=== PATIENT | male | born 1965 | race Caucasian/White ===

== ENCOUNTER 2018-07-23 16:57 | Inpatient (IN) | payer MEDICARE ==
[2018-07-23] MEDS ORDERED: ASPIRIN 81 MG PO STA (17:11)
[2018-07-23 17:38] LABS: Basophils # (A) 0.1 k/uL (0-0.2); Basophils % (A) 1 %; Eosinophils # (A) 0.7 k/uL (0-0.7); Eosinophils % (A) 6 %; HCT 48.5 % (39.0-53.0); HGB 15.9 gm/dL (13.0-17.5); Lymphocytes % (A) 16 %; MCH 30.9 pg (25.0-35.0); MCHC 32.8 g/dL (31.0-37.0); MCV 94.2 fL (80.0-100.0); Mean Platelet Volume 7.7; Monocytes # (A) 0.8 k/uL (0-1.0); Monocytes % (A) 6 %; Neutrophils # (A) 8.4 k/uL (1.3-7.7); Neutrophils % (A) 68 %; Platelet Count 243 k/uL (150-450); RBC 5.15 m/uL (4.30-5.90); RDW 13.8 % (11.5-15.5); WBC 12.4 k/uL (3.8-10.6)
[2018-07-23 17:42] LABS: INR 0.9 (<1.2); Partial Thromboplastin Time 27.5 sec (22.0-30.0); Prothrombin Time 10.1 sec (9.0-12.0)
[2018-07-23 17:48] LABS: Albumin 4.6 g/dL (3.5-5.0); Calcium 10.1 mg/dL (8.4-10.2); Magnesium 1.9 mg/dL (1.6-2.3); Potassium 4.1 mmol/L (3.5-5.1); Total Bilirubin 0.9 mg/dL (0.2-1.3); Total Protein 7.7 g/dL (6.3-8.2)
--- NOTE | 2018-07-23 18:25 | XR ---
EXAMINATION TYPE: XR chest 2V DATE OF EXAM: 07/23/2018 COMPARISON: NONE HISTORY: Chest pain TECHNIQUE: Frontal and lateral views of the chest are obtained. FINDINGS: Heart and mediastinum are normal. Lungs are clear. Diaphragm is normal. Bony thorax appear s normal. IMPRESSION: Normal chest.
[2018-07-23] MEDS ORDERED: HEPARIN SODIUM,PORCINE 5,000 UNIT/ML 1 ML VIAL IV ONE (18:30)
[2018-07-23] MEDS ORDERED: NITROGLYCERIN OINT 1 INCH/GM PACKET TOPICAL STA (18:45)
[2018-07-23] MEDS ORDERED: METOPROLOL SUCCINATE (ER) 50 MG TAB.ER.24H PO STA (18:45)
[2018-07-23] MEDS ORDERED: NITROGLYCERIN SL TABS 0.4 MG TAB SUBLINGUAL PRN (18:46)
[2018-07-23] MEDS ORDERED: MORPHINE SULFATE 2 MG/ML SYRINGE IVP PRN (18:46)
[2018-07-23] MEDS: HEPARIN SOD,PORK IN 0.45% NACL 25,000 UNIT in 0.45% NACL 1 250ML.BAG IV SCH (18:49)
--- NOTE | 2018-07-23 18:50 | ED ---
Medical Decision Making - Medical Decision Making PA attestation: I, Dr. Robert Cuteo, personally saw and examined the patient. I have reviewed and agree with the resident/PA findings, including all diagnostic interpretations and treatment plans as written unless otherwise stated. I was present for the hawkins portions of any procedures performed and inclusive time noted for any critical care statement. Patient is a 52-year-old male presents with clinical presentation consistent with unstable angina. EKG does not show STEMI however does show ischemic changes. Patient's troponin is elevated at 1.350. Patient evaluated at bedside myself currently not having any chest symptoms. He is hemodynamically stable. Patient case was discussed with Dr. Alberto of cardiology request patient be place intensive care unit with heparin, metoprolol, aspirin and nitro glycerin. Discussed patient case Dr. Burleson who is acceptable to ICU disposition. Repeat EKG did not show any dynamic changes. There is no clinical suspicion of PE at this time given that patient still complaining of shortness of breath, pleuritic chest pain and has no physical exam findings to suggest PE including lower extremity swelling or pain. - Lab Data Result diagrams: 07/23/18 17:21 07/23/18 17:21 Lab Results 07/23/18 07/23/18 07/23/18 Range/Units 17:21 17:21 17:21 WBC 12.4 H (3.8-10.6) k/uL RBC 5.15 (4.30-5.90) m/uL Hgb 15.9 (13.0-17.5) gm/dL Hct 48.5 (39.0-53.0) % MCV 94.2 (80.0-100.0) fL MCH 30.9 (25.0-35.0) pg MCHC 32.8 (31.0-37.0) g/dL RDW 13.8 (11.5-15.5) % Plt Count 243 (150-450) k/uL Neutrophils % 68 % Lymphocytes % 16 % Monocytes % 6 % Eosinophils % 6 % Basophils % 1 % Neutrophils # 8.4 H (1.3-7.7) k/uL Lymphocytes # 2.0 (1.0-4.8) k/uL Monocytes # 0.8 (0-1.0) k/uL Eosinophils # 0.7 (0-0.7) k/uL Basophils # 0.1 (0-0.2) k/uL PT 10.1 (9.0-12.0) sec INR 0.9 (<1.2) APTT 27.5 (22.0-30.0) sec D-Dimer (<0.60) mg/L FEU Sodium 140 (137-145) mmol/L Potassium 4.1 (3.5-5.1) mmol/L Chloride 104 (98-107) mmol/L Carbon Dioxide 27 (22-30) mmol/L Anion Gap 9 mmol/L BUN 19 (9-20) mg/dL Creatinine 1.17 (0.66-1.25) mg/dL Est GFR (CKD-EPI)AfAm 82 (>60 ml/min/1.73 sqM) Est GFR (CKD-EPI)NonAf 71 (>60 ml/min/1.73 sqM) Glucose 100 H (74-99) mg/dL Calcium 10.1 (8.4-10.2) mg/dL Magnesium 1.9 (1.6-2.3) mg/dL Total Bilirubin 0.9 (0.2-1.3) mg/dL AST 57 (17-59) U/L ALT 30 (21-72) U/L Alkaline Phosphatase 73 (38-126) U/L Troponin I (0.000-0.034) ng/mL NT-Pro-B Natriuret Pep pg/mL Total Protein 7.7 (6.3-8.2) g/dL Albumin 4.6 (3.5-5.0) g/dL 07/23/18 07/23/18 07/23/18 Range/Units 17:21 17:50 17:50 WBC (3.8-10.6) k/uL RBC (4.30-5.90) m/uL Hgb (13.0-17.5) gm/dL Hct (39.0-53.0) % MCV (80.0-100.0) fL MCH (25.0-35.0) pg MCHC (31.0-37.0) g/dL RDW (11.5-15.5) % Plt Count (150-450) k/uL Neutrophils % % Lymphocytes % % Monocytes % % Eosinophils % % Basophils % % Neutrophils # (1.3-7.7) k/uL Lymphocytes # (1.0-4.8) k/uL Monocytes # (0-1.0) k/uL Eosinophils # (0-0.7) k/uL Basophils # (0-0.2) k/uL PT (9.0-12.0) sec INR (<1.2) APTT (22.0-30.0) sec D-Dimer 0.35 (<0.60) mg/L FEU Sodium (137-145) mmol/L Potassium (3.5-5.1) mmol/L Chloride (98-107) mmol/L Carbon Dioxide (22-30) mmol/L Anion Gap mmol/L BUN (9-20) mg/dL Creatinine (0.66-1.25) mg/dL Est GFR (CKD-EPI)AfAm (>60 ml/min/1.73 sqM) Est GFR (CKD-EPI)NonAf (>60 ml/min/1.73 sqM) Glucose (74-99) mg/dL Calcium (8.4-10.2) mg/dL Magnesium (1.6-2.3) mg/dL Total Bilirubin (0.2-1.3) mg/dL AST (17-59) U/L ALT (21-72) U/L Alkaline Phosphatase (38-126) U/L Troponin I 1.350 H* (0.000-0.034) ng/mL NT-Pro-B Natriuret Pep 521 pg/mL Total Protein (6.3-8.2) g/dL Albumin (3.5-5.0) g/dL Disposition Clinical Impression: Unstable angina Disposition: ADMITTED IP TO THIS [facility] Condition: Critical Referrals: None,Stated [Primary Care Provider] - 1-2 days Decision Time: 18:49
--- NOTE | 2018-07-23 21:25 | P.HPIM ---
History of Present Illness H&P Date: 07/23/18 Chief Complaint: Chest pain The patient is a 52-year-old obese male with a past smoker history of hypothyroidism and hyperlipidemia who presents to the ER with complaints of chest pain. Apparently the patient has been having intermittent episodes of exertionally related chest discomfort over the last week. Today in particular the patient was exerting himself by pulling cattle panels several yards in his yard, the patient then subsequently began having left-sided severe 7 out of 10 throbbing pressure-like nonradiating pain with associated shortness of breath, the patient denied any associated diaphoresis nausea or vomiting or abdominal pain. The patient denies any history of smoking, he does report a family history of coronary disease in his brother and mother. In the ER the patient was noted to be hypertensive BP 152/82, workup with chest x-ray showed no acute process. EKG indicating some ischemia with T-wave inversion With elevated troponin at 1.350. WBC count 12.4 d-dimer 0.35. The patient was started on aspirin, given a dose of nitroglycerin and metoprolol and placed on heparin drip, he was subsequently recommended for admission for ACS non-Q wave WI Review of Systems Pertinent positives per HPI all other of systems otherwise negative Past Medical History Past Medical History: Hyperlipidemia History of Any Multi-Drug Resistant Organisms: None Reported Past Surgical History: No Surgical Hx Reported Past Psychological History: No Psychological Hx Reported Smoking Status: Never smoker Past Alcohol Use History: None Reported Past Drug Use History: None Reported Medications and Allergies Home Medications Medication Instructions Recorded Confirmed Type Thyroid,Pork [[place] Thyroid] 60 mg PO DAILY 07/23/18 07/23/18 History Allergies Allergy/AdvReac Type Severity Reaction Status Date / Time No Known Allergies Allergy Verified 07/23/18 17:14 Physical Exam Vitals: Vital Signs Temp Pulse Resp BP Pulse Ox 07/23/18 20:50 76 10 L 145/84 94 L 07/23/18 20:40 82 11 L 144/87 92 L 07/23/18 20:30 97 14 142/85 94 L 07/23/18 20:20 84 18 142/85 91 L 07/23/18 20:10 88 19 152/82 92 L 07/23/18 20:00 87 24 152/89 93 L 07/23/18 19:50 82 9 L 152/89 95 07/23/18 19:40 79 19 146/85 95 07/23/18 19:30 89 18 139/103 97 07/23/18 19:20 85 14 139/103 97 07/23/18 19:10 85 15 147/86 97 07/23/18 19:00 88 18 154/94 96 07/23/18 18:50 111 H 14 154/94 95 07/23/18 18:40 122 H 13 139/76 07/23/18 18:30 94 18 145/72 07/23/18 18:20 86 16 145/72 07/23/18 18:10 92 18 147/82 07/23/18 18:00 99 18 148/89 96 07/23/18 17:50 89 18 148/89 96 07/23/18 17:40 110 H 18 167/91 93 L 07/23/18 17:30 101 H 12 94 L 07/23/18 17:23 96 07/23/18 17:00 99.1 F 102 H 20 148/96 96 Intake and Output 07/23/18 07/23/18 07/23/18 06:59 14:59 22:59 Other: Weight 114.759 kg Constitutional: No acute distress, conversant, pleasant Eyes: Anicteric sclerae, moist conjunctiva, no lid-lag, PERRLA ENMT: NC/AT,Oropharynx clear, no erythema, exudates Neck:Supple, FROM, no masses, or JVD, No carotid bruits; No thyromegaly Lungs: Clear to auscultation, Clear to percussion, Normal respiratory effort, no accessory muscle use Cardiovascular: Heart regular in rate and rhythm, No murmurs, gallops, or rubs no peripheral edema Abdominal: Soft Nontender, nom distended, no guarding, no rebound or rigidity, Normoactive bowel sounds No hepatomegaly, No splenomegaly, No palpable mass No abdominal wall hernia noted Skin: Normal temperature, tone, texture, turgor, No induration No subcutaneous nodules, No rash, lesions, No ulcers Extremities:No digital cyanosis No clubbing, Pedal pulses intact and symmetrical Radial pulses intact and symmetrical Normal gait and station, No calf tenderness Psychiatric: Alert and oriented to person, place and time, Appropriate affect Intact judgement Neuro: Muscles Strength 5/5 in all 4 extremities, Sensation to light touch grossly present throughout, Cranial nerves II-XII grossly intact. No focal sensory deficits Results CBC & Chem 7: 07/23/18 17:21 07/23/18 17:21 Labs: Abnormal Lab Results - Last 24 Hours (Table) 07/23/18 07/23/18 07/23/18 Range/Units 17:21 17:21 17:21 WBC 12.4 H (3.8-10.6) k/uL Neutrophils # 8.4 H (1.3-7.7) k/uL Glucose 100 H (74-99) mg/dL Troponin I 1.350 H* (0.000-0.034) ng/mL Assessment and Plan (1) Non-STEMI (non-ST elevated myocardial infarction) Current Visit: Yes Status: Acute Code(s): I21.4 - NON-ST ELEVATION (NSTEMI) MYOCARDIAL INFARCTION SNOMED Code(s): 88615222 (2) Essential hypertension Current Visit: Yes Status: Acute Code(s): I10 - ESSENTIAL (PRIMARY) HYPERTENSION SNOMED Code(s): 28571175 (3) Hypothyroidism Current Visit: Yes Status: Acute Code(s): E03.9 - HYPOTHYROIDISM, UNSPECIFIED SNOMED Code(s): 23581582 Plan: The patient is admitted, anticipate a greater than 2 midnight stay with non- STEMI non-Q wave WI after presenting with exertional chest pain found to have elevation of his troponin with suspicious T-wave inversion. He is started on protocol with antiplatelet therapy with aspirin, and anticoagulation with heparin drip per protocol, we'll continue to trend his enzymes sequentially, urgent cardiology consultation, will order echocardiogram. We'll continue metoprolol, nitroglycerin when necessary. The patient is admitted to the ICU for close monitoring. We'll continue to follow patient's clinical course CODE STATUS: Full code Discussed plan of care with: Patient Anticipated discharge 2-3 days Prophylaxis: Currently on heparin Time with Patient: Greater than 30
[2018-07-23] MEDS ORDERED: ACETAMINOPHEN TAB 325 MG TAB PO PRN (21:33)
[2018-07-23 21:42] LABS: Glucose,Whole Blood 99 mg/dL (75-99)
[2018-07-23] MEDS ORDERED: METOPROLOL TARTRATE 25 MG TAB PO STA (21:42)
[2018-07-23] MEDS: ATORVASTATIN 40 MG TAB PO SCH (21:53)
[2018-07-24] MEDS: HEPARIN SODIUM,PORCINE 5,000 UNIT/ML 1 ML VIAL IV PRN ×3 (02:05→21:00)
[2018-07-24 06:24] LABS: Basophils # (A) 0.1 k/uL (0-0.2); Basophils % (A) 1 %; Eosinophils # (A) 0.3 k/uL (0-0.7); Eosinophils % (A) 3 %; HCT 45.6 % (39.0-53.0); HGB 14.7 gm/dL (13.0-17.5); Lymphocytes # (A) 1.8 k/uL (1.0-4.8); Lymphocytes % (A) 16 %; MCH 31.2 pg (25.0-35.0); MCHC 32.3 g/dL (31.0-37.0); MCV 96.5 fL (80.0-100.0); Mean Platelet Volume 7.2; Monocytes # (A) 0.7 k/uL (0-1.0); Monocytes % (A) 7 %; Neutrophils # (A) 7.7 k/uL (1.3-7.7); Neutrophils % (A) 71 %; Platelet Count 204 k/uL (150-450); RBC 4.73 m/uL (4.30-5.90); RDW 13.1 % (11.5-15.5); WBC 10.8 k/uL (3.8-10.6)
[2018-07-24 06:44] LABS: Anion Gap 11 mmol/L; Blood Urea Nitrogen 16 mg/dL (9-20); Calcium 9.4 mg/dL (8.4-10.2); Carbon Dioxide 24 mmol/L (22-30); Chloride 104 mmol/L (98-107); Cholesterol 195 mg/dL (<200); Glucose 94 mg/dL (74-99); HDL Cholesterol 36 mg/dL (40-60); LDL Cholesterol,Calculated 146 mg/dL (0-99); Potassium 4.1 mmol/L (3.5-5.1); Sodium 139 mmol/L (137-145); Triglycerides 65 mg/dL (<150)
--- NOTE | 2018-07-24 08:39 | P.PN ---
Subjective Progress Note Date: 07/24/18 Principal diagnosis: Chest pain. 52-year-old male with PMH obesity, past smoker, hypothyroidism and hyperlipidemia presents the ED for chest pain. Initial troponin was 1.350 with EKG indicating ischemia with T-wave inversion. Patient subsequently started on a heparin drip for ACS non-Q-wave OR and admitted to ICU for further workup. Subsequent troponins were 2.74, 3.83, 3.78. Cardiology is currently on consult. Patient seen and examined. No acute events overnight. Patient reports mild chest pain overnight. Pain is in the upper epigastric area and left side of the chest occasionally radiating to the left arm. He denies any nausea or vomiting. No shortness of breath or palpitations. Also complains of chest pain over the last few months, especially with carrying heavy things and with exertion. Objective - Vital Signs Vital signs: Vital Signs Temp 97.9 F 07/24/18 04:00 Pulse 77 07/24/18 07:00 Resp 23 07/24/18 07:00 BP 134/76 07/24/18 07:00 Pulse Ox 93 L 07/24/18 07:00 Intake & Output 07/23/18 07/24/18 07/24/18 18:59 06:59 18:59 Intake Total 134.387 Output Total 275 0 Balance -140.613 0 Weight 114.759 kg 114.7 kg Intake: Intake, IV Titration 134.387 Amount Heparin Sod,Pork in 0.45% 134.387 NaCl 25,000 unit In 0.45 % NaCl 1 250ml.bag @ 8. 714 UNITS/KG/HR 10 mls/hr IV .Q24H [facility] Rx#: [id number] Output: Urine 275 0 Other: Voiding Method Urinal - Exam General: [non toxic], [no distress], [appears at stated age] Derm: [warm], [dry] Head: [atraumatic], [normocephalic], [symmetric] Eyes: [EOMI], [no lid lag], [anicteric sclera] Mouth: [no lip lesion], [mucus membranes moist] Cardiovascular: [S1S2 reg], [no murmur], [positive posterior tibial pulse bilateral], Lungs: [CTA bilateral], [no rhonchi, no rales] , [no accessory muscle use] Abdominal: [soft], [ nontender to palpation], [no guarding], [no appreciable organomegaly] Ext: [no gross muscle atrophy], [no edema], [no contractures] Neuro: [ CN II-XI grossly intact], [no focal neuro deficits] Psych: [Alert], [oriented], [appropriate affect] - Labs CBC & Chem 7: 07/24/18 05:29 07/24/18 05:29 Labs: Abnormal Lab Results - Last 24 Hours (Table) 07/23/18 07/23/18 07/23/18 Range/Units 17:21 17:21 17:21 WBC 12.4 H (3.8-10.6) k/uL Neutrophils # 8.4 H (1.3-7.7) k/uL APTT (22.0-30.0) sec Glucose 100 H (74-99) mg/dL Troponin I 1.350 H* (0.000-0.034) ng/mL LDL Cholesterol, Calc (0-99) mg/dL HDL Cholesterol (40-60) mg/dL 07/23/18 07/24/18 07/24/18 Range/Units 23:20 00:29 05:29 WBC 10.8 H (3.8-10.6) k/uL Neutrophils # (1.3-7.7) k/uL APTT 39.6 H (22.0-30.0) sec Glucose (74-99) mg/dL Troponin I 2.740 H* (0.000-0.034) ng/mL LDL Cholesterol, Calc (0-99) mg/dL HDL Cholesterol (40-60) mg/dL 07/24/18 07/24/18 07/24/18 Range/Units 05:29 05:29 05:29 WBC (3.8-10.6) k/uL Neutrophils # (1.3-7.7) k/uL APTT 90.8 H (22.0-30.0) sec Glucose (74-99) mg/dL Troponin I 3.830 H* (0.000-0.034) ng/mL LDL Cholesterol, Calc 146 H (0-99) mg/dL HDL Cholesterol 36 L (40-60) mg/dL 07/24/18 Range/Units 05:29 WBC (3.8-10.6) k/uL Neutrophils # (1.3-7.7) k/uL APTT (22.0-30.0) sec Glucose (74-99) mg/dL Troponin I 3.780 H* (0.000-0.034) ng/mL LDL Cholesterol, Calc (0-99) mg/dL HDL Cholesterol (40-60) mg/dL Assessment and Plan Assessment: Assessment and Plan Non-Q-wave OR Hypertension Hyperlipidemia Obesity with BMI 38.4 Result factors include hypertension, hyperlipidemia and obesity. Chest x-ray negative. Troponins 1.35, 2.74, 3.83, 3.78 with EKG showing sinus tachycardia with T-wave inversions. Plan: Continue aspirin and Lipitor. Continue beta meka. Tylenol or Nitrostat as needed for chest pain. Continue heparin drip. Telemetry monitoring. Follow cardiology recommendations. Follow-up echocardiogram. BP 134/76. Plan: Continue metoprolol. Monitor vitals, adjust medications as necessary. Lipid panel shows elevated LDL 146 and decreased HDL of 36. Plan: Low-fat diet. Continue Lipitor. Plan: Structured weight loss program. Patient admitted for non-Q-wave OR. Cardiology is consulted. Continued on heparin drip.
[2018-07-24] MEDS: ASPIRIN 325 MG TAB PO SCH (09:23)
[2018-07-24] MEDS: THYROID, PORK 30 MG TAB PO SCH (09:23)
[2018-07-24] MEDS: METOPROLOL TARTRATE 25 MG TAB PO SCH ×2 (09:23→20:50)
--- NOTE | 2018-07-24 10:48 | ECHOF ---
Referral Reason:NSTEMI MEASUREMENTS -------- HEIGHT: 172.7 cm WEIGHT: 114.3 kg BP: 122/76 RVIDd: 3.2 cm (< 3.3) IVSd: 1.3 cm (0.6 - 1.1) LVIDd: 4.3 cm (3.9 - 5.3) LVPWd: 1.2 cm (0.6 - 1.1) IVSs: 1.7 cm LVIDs: 3.4 cm LVPWs: 1.5 cm LA Diam: 3.5 cm (2.7 - 3.8) LAESV Index (A-L): 21.07 ml/m Ao Diam: 3.2 cm (2.0 - 3.7) AV Cusp: 2.2 cm (1.5 - 2.6) MV EXCURSION: 16.269 mm (> 18.000) MV EF SLOPE: 73 mm/s (70 - 150) EPSS: 0.7 cm MV E William: 0.83 m/s MV DecT: 204 ms MV A William: 1.11 m/s MV E/A Ratio: 0.75 RAP: 5.00 mmHg RVSP: 38.74 mmHg FINDINGS -------- Sinus rhythm. This was a technically adequate study. The left ventricular size is normal. There is mild concentric left ventricular hypertrophy. Overa ll left ventricular systolic function is mildly impaired with, an EF between 45 - 50 %. Basal infer ior LV wall motion is hypokinetic. The right ventricle is normal in size. Normal LA size by volume 22+/-6 ml/m2. The right atrium is normal in size. The aortic valve is trileaflet and appears structurally normal. Mild mitral annular calcification present. Mild tricuspid regurgitation present. There is mild pulmonary hypertension. The right ventricular systolic pressure, as measured by Doppler, is 38.74mmHg. There is no pulmonic regurgitation present. The aortic root size is normal. Normal inferior vena cava with normal inspiratory collapse consistent with estimated right atrial pre ssure of 5 mmHg. Echo free space may represent effusion or a pericardial fat pad. CONCLUSIONS -------- 1. Sinus rhythm. 2. This was a technically adequate study. 3. The left ventricular size is normal. 4. There is mild concentric left ventricular hypertrophy. 5. Overall left ventricular systolic function is mildly impaired with, an EF between 45 - 50 %. 6. Basal inferior LV wall motion is hypokinetic. 7. The right ventricle is normal in size. 8. Normal LA size by volume 22+/-6 ml/m2. 9. The right atrium is normal in size. 10. The aortic valve is trileaflet and appears structurally normal. 11. Mild mitral annular calcification present. 12. Mild tricuspid regurgitation present. 13. There is mild pulmonary hypertension. 14. The right ventricular systolic pressure, as measured by Doppler, is 38.74mmHg. 15. There is no pulmonic regurgitation present. 16. The aortic root size is normal. 17. Normal inferior vena cava with normal inspiratory collapse consistent with estimated right atrial pressure of 5 mmHg. 18. Echo free space may represent effusion or a pericardial fat pad. SALES OFFICER: Esperanza Cuellar RDCS
[2018-07-24] MEDS: ATORVASTATIN 40 MG TAB PO SCH (20:49)
[2018-07-24] MEDS: HEPARIN SOD,PORK IN 0.45% NACL 25,000 UNIT in 0.45% NACL 1 250ML.BAG IV SCH (21:04)
[2018-07-25 03:58] LABS: Basophils % (A) 0 %; Eosinophils # (A) 0.4 k/uL (0-0.7); Eosinophils % (A) 4 %; HCT 45.1 % (39.0-53.0); HGB 14.9 gm/dL (13.0-17.5); Lymphocytes # (A) 2.3 k/uL (1.0-4.8); Lymphocytes % (A) 22 %; MCH 31.4 pg (25.0-35.0); MCHC 33.1 g/dL (31.0-37.0); MCV 95.1 fL (80.0-100.0); Mean Platelet Volume 6.8; Monocytes # (A) 0.8 k/uL (0-1.0); Monocytes % (A) 8 %; Neutrophils # (A) 6.5 k/uL (1.3-7.7); Neutrophils % (A) 64 %; Platelet Count 178 k/uL (150-450); RBC 4.75 m/uL (4.30-5.90); RDW 13.3 % (11.5-15.5); WBC 10.2 k/uL (3.8-10.6)
[2018-07-25 04:41] LABS: ALT 28 U/L (21-72); AST 62 U/L (17-59); Alkaline Phosphatase 66 U/L (38-126); Anion Gap 9 mmol/L; Blood Urea Nitrogen 16 mg/dL (9-20); Calcium 9.2 mg/dL (8.4-10.2); Carbon Dioxide 27 mmol/L (22-30); Chloride 102 mmol/L (98-107); Glucose 87 mg/dL (74-99); Potassium 4.2 mmol/L (3.5-5.1); Sodium 138 mmol/L (137-145); Total Bilirubin 1.1 mg/dL (0.2-1.3); Total Protein 6.9 g/dL (6.3-8.2)
--- NOTE | 2018-07-25 07:04 | P.CRDCN ---
History of Present Illness Consult date: 07/25/18 Chief complaint: Chest pain History of present illness: This is a pleasant 52-year-old gentleman with a past medical history significant for mild obesity as well as dyslipidemia was not receiving any medications for that presented to the hospital containing of chest discomfort. He was in his usual state of health until about a week ago when he noticed intermittent episodes of chest discomfort, in the mid of the chest, as a pressure on the ch est, with some radiation to the left arm, was associated symptoms of shortness of breath without any sweating, dizziness, or syncope. He clearly stated that the chest discomfort is mostly exertional and better with resting. He stated that he does not have to exert himself that much for the chest discomfort to come on. Because of that he decided to come to the emergency room. The EKG showed sinus rhythm without any significant ST or T-wave abnormalities concerning for ischemia. The troponin came in to be elevated and consistent with acute myocardial infarction. I did advise the patient to undergo heart catheterization and possible revascularization. The procedure in details was explained to the patient. Currently he is on heparin, aspirin, metoprolol, and statin. We will continue t he current medical regimen and proceed with coronary angiogram later on today. Please note that the patient does have a very significant family history of coronary artery disease. Past Medical History Past Medical History: Hyperlipidemia Additional Past Medical History / Comment(s): tourettes syndrome History of Any Multi-Drug Resistant Organisms: None Reported Past Surgical History: No Surgical Hx Reported Past Anesthesia/Blood Transfusion Reactions: No Reported Reaction Past Psychological History: No Psychological Hx Reported Smoking Status: Never smoker Past Alcohol Use History: None Reported Past Drug Use History: None Reported - Past Family History Mother Family Medical History: Coronary Artery Disease (CAD) Medications and Allergies Home Medications Medication Instructions Recorded Confirmed Type Thyroid,Pork [[place] Thyroid] 60 mg PO DAILY 07/23/18 07/23/18 History Allergies Allergy/AdvReac Type Severity Reaction Status Date / Time No Known Allergies Allergy Verified 07/23/18 17:14 Physical Exam Vitals: Vital Signs Temp Pulse Resp BP Pulse Ox 07/25/18 06:00 66 16 120/79 91 L 07/25/18 05:00 78 14 127/81 96 07/25/18 04:01 98.3 F 75 17 114/79 95 07/25/18 03:00 71 22 121/93 91 L 07/25/18 02:00 64 12 114/74 92 L 07/25/18 01:00 68 16 114/84 92 L 07/25/18 00:00 74 16 112/73 96 07/24/18 23:00 78 12 119/61 94 L 07/24/18 22:00 73 19 132/69 92 L 07/24/18 21:00 82 21 135/78 93 L 07/24/18 20:30 94 L 07/24/18 20:00 98.7 F 84 14 121/70 91 L 07/24/18 19:00 78 17 122/76 94 L 07/24/18 18:00 80 16 121/71 93 L 07/24/18 17:00 85 22 134/84 96 07/24/18 16:00 99.1 F 80 20 119/72 92 L 07/24/18 15:00 75 22 138/75 95 07/24/18 14:00 71 15 140/77 93 L 07/24/18 13:00 77 13 121/67 93 L 07/24/18 12:00 99.2 F 72 22 120/72 93 L 07/24/18 11:00 65 10 L 147/90 96 07/24/18 10:00 80 20 156/84 91 L 07/24/18 09:00 94 19 156/84 94 L 07/24/18 08:30 65 16 131/67 91 L 07/24/18 08:15 68 14 131/67 91 L 07/24/18 08:00 98.9 F 71 16 140/95 94 L 07/24/18 07:45 62 16 140/95 92 L 07/24/18 07:30 72 15 140/95 94 L 07/24/18 07:15 65 18 140/95 93 L Intake and Output 07/24/18 07/25/18 07/25/18 22:59 06:59 14:59 Intake Total 497.893 117.129 Output Total 0 300 Balance 497.893 -182.871 Intake: Intake, IV Titration 47.893 117.129 Amount Heparin Sod,Pork in 0.45% 47.893 117.129 NaCl 25,000 unit In 0.45 % NaCl 1 250ml.bag @ 8. 714 UNITS/KG/HR 10 mls/hr IV .Q24H [facility] Rx#: [id number] Oral 450 0 Output: Urine 0 300 Other: Voiding Method Urinal Urinal # Voids 1 0 Weight 111.8 kg - Constitutional General appearance: no acute distress - Respiratory Respiratory: bilateral: CTA - Cardiovascular Rhythm: regular Heart sounds: normal: S1, S2 Results 07/25/18 03:31 07/25/18 03:31 Cardiac Enzymes 07/24/18 07/24/18 07/25/18 Range/Units 05:29 11:39 03:31 AST 62 H (17-59) U/L Troponin I 3.830 H* 2.650 H* (0.000-0.034) ng/mL Coagulation 07/24/18 07/24/18 07/25/18 Range/Units 11:39 18:46 03:31 APTT 44.0 H 59.5 H 98.5 H (22.0-30.0) sec CBC 07/25/18 Range/Units 03:31 WBC 10.2 (3.8-10.6) k/uL RBC 4.75 (4.30-5.90) m/uL Hgb 14.9 (13.0-17.5) gm/dL Hct 45.1 (39.0-53.0) % Plt Count 178 (150-450) k/uL Comprehensive Metabolic Panel 07/25/18 Range/Units 03:31 Sodium 138 (137-145) mmol/L Potassium 4.2 (3.5-5.1) mmol/L Chloride 102 (98-107) mmol/L Carbon Dioxide 27 (22-30) mmol/L BUN 16 (9-20) mg/dL Creatinine 0.82 (0.66-1.25) mg/dL Glucose 87 (74-99) mg/dL Calcium 9.2 (8.4-10.2) mg/dL AST 62 H (17-59) U/L ALT 28 (21-72) U/L Alkaline Phosphatase 66 (38-126) U/L Total Protein 6.9 (6.3-8.2) g/dL Albumin 4.0 (3.5-5.0) g/dL Current Medications Generic Name Dose Route Start Last Admin Trade Name Freq PRN Reason Stop Dose Admin Acetaminophen 650 mg 07/23/18 21:33 Tylenol Tab PO Q4HR PRN Pain Aspirin 325 mg 07/24/18 09:00 07/24/18 09:23 Aspirin PO 325 mg DAILY [facility] Administration Atorvastatin Calcium 40 mg 07/23/18 21:00 07/24/18 20:49 Lipitor PO 40 mg HS [facility] Administration Heparin Sodium (Porcine) 0 unit 07/23/18 18:30 07/24/18 21:00 Heparin IV 2,867 unit PER PROTOCOL PRN Administration Low PTT Protocol Heparin Sodium/Sodium Chloride 250 mls @ 10 mls/hr 07/23/18 18:30 07/25/18 05:40 25,000 unit/ Sodium Chloride IV 10.7 units/kg/hr .Q24H [facility] 12.279 mls/hr Titration Protocol 8.714 UNITS/KG/HR Metoprolol Tartrate 25 mg 07/24/18 09:00 07/24/18 20:50 Lopressor PO 25 mg BID [facility] Administration Morphine Sulfate 2 mg 07/23/18 18:46 Morphine Sulfate (Inj) IVP Q5M PRN Chest Pain Nitroglycerin 0.4 mg 07/23/18 18:46 Nitrostat SUBLINGUAL Q5M PRN Chest Pain Thyroid 60 mg 07/24/18 09:00 07/24/18 09:23 [place] Thyroid PO 60 mg DAILY [facility] Administration Intake and Output 07/24/18 07/25/18 07/25/18 22:59 06:59 14:59 Intake Total 497.893 117.129 Output Total 0 300 Balance 497.893 -182.871 Intake: Intake, IV Titration 47.893 117.129 Amount Heparin Sod,Pork in 0.45% 47.893 117.129 NaCl 25,000 unit In 0.45 % NaCl 1 250ml.bag @ 8. 714 UNITS/KG/HR 10 mls/hr IV .Q24H [facility] Rx#: [id number] Oral 450 0 Output: Urine 0 300 Other: Voiding Method Urinal Urinal # Voids 1 0 Weight 111.8 kg 07/25/18 03:31 07/25/18 03:31 Assessment and Plan Assessment: Assessment #1 acute non-ST elevation myocardial infarction #2 dyslipidemia #3 significant family history of coronary artery disease Plan #1 continue the current medical regimen including aspirin, statin, and heparin #2 proceed with coronary angiogram later on today #3 obtain an echocardiogram was Doppler #4 follow-up with the patient
[2018-07-25] MEDS: ASPIRIN 325 MG TAB PO SCH (09:00)
[2018-07-25] MEDS: THYROID, PORK 30 MG TAB PO SCH (09:00)
[2018-07-25] MEDS: METOPROLOL TARTRATE 25 MG TAB PO SCH ×2 (09:00→21:08)
[2018-07-25] MEDS ORDERED: VERAPAMIL 2.5 MG/ML 2 ML AMP ONE (12:38)
[2018-07-25] MEDS ORDERED: HEPARIN SODIUM 1,000 UN/ML (10ML VL) ONE ×2 (12:52→13:45)
[2018-07-25] MEDS ORDERED: MIDAZOLAM (PF) 2 MG/2 ML VIAL IVP ONE ×2 (12:57→13:07)
[2018-07-25] MEDS ORDERED: LIDOCAINE 1% INJ 10MG/ML (20 ML MDV) SQ ONE (13:00)
[2018-07-25] MEDS ORDERED: SODIUM CHLORIDE 0.9% 1,000 ML IV ONE (13:00)
[2018-07-25] MEDS: VERAPAMIL SYRINGE (5 MG/10 ML) INTRAARTER ONE ×2 (13:02→13:37)
[2018-07-25] MEDS ORDERED: HEPARIN SODIUM 1,000 UN/ML (10ML VL) IV ONE ×2 (13:03→13:44)
[2018-07-25] MEDS: NITROGLYCERIN 1000MCG/10ML SYRINGE INTRACORON ONE ×2 (13:23→13:36)
[2018-07-25] MEDS ORDERED: TICAGRELOR 90 MG TAB ONE (13:26)
[2018-07-25] MEDS ORDERED: TICAGRELOR 90 MG TAB PO ONE (13:27)
[2018-07-25] MEDS ORDERED: MORPHINE SULFATE 4 MG/ML SYRINGE ONE (13:34)
[2018-07-25] MEDS ORDERED: MORPHINE SULFATE 4 MG/ML SYRINGE IVP ONE (13:36)
[2018-07-25] MEDS ORDERED: FUROSEMIDE 10 MG/ML 4 ML VIAL ONE (13:37)
[2018-07-25] MEDS ORDERED: IOPAMIDOL-370 125ML BTL INJ ONE (13:43)
[2018-07-25] MEDS ORDERED: FUROSEMIDE 10 MG/ML 4 ML VIAL IV ONE (13:43)
[2018-07-25] MEDS ORDERED: ZOLPIDEM 5 MG TAB PO PRN (13:47)
[2018-07-25] MEDS ORDERED: MAG HYDROX/AL HYDROX/SIMETH 30 ML CUP PO PRN (13:47)
[2018-07-25] MEDS ORDERED: ATROPINE SULFATE 0.1 MG/ML 10ML SYRINGE IV PRN (13:47)
[2018-07-25] MEDS ORDERED: RX INFO: IV CONTRAST WAS GIVEN 1 EACH MISC MISCELLANE PRN (13:47)
[2018-07-25] MEDS ORDERED: NITROGLYCERIN SL TABS 0.4 MG TAB SUBLINGUAL PRN (13:47)
[2018-07-25] MEDS ORDERED: NITROGLYCERIN SL TABS 0.4 MG TAB SUBLINGUAL ONE (13:53)
[2018-07-25] MEDS ORDERED: SODIUM CHLORIDE 0.9% 1,000 ML IV SCH (14:00)
--- NOTE | 2018-07-25 21:05 | CC ---
CARDIAC CATHETERIZATION REPORT DATE OF SERVICE: July 25, 2018. PERFORMING PHYSICIAN: Tyrese Warren MD, printing plate clerk. PROCEDURE PERFORMED: 1. Selective right and left coronary angiogram. 2. Left heart catheterization. 3. Successful stenting of the mid right coronary artery using 3.25 x 28 mm Xience SAMUEL which was post dilated using 3.75 mm NC balloon with an excellent angiographic result and reduction of stenosis from 99% to 0%. INDICATION: This is a pleasant 52-year-old gentleman with history of dyslipidemia and hypertension who presented to the hospital with chest discomfort and ruled in for acute non ST elevation myocardial infarction. The decision was made toward heart catheterization and percutaneous coronary intervention. APPROACH: Right radial artery. COMPLICATION: None. LEVEL OF SEDATION: Moderate with sedation length of 40 minutes. PROCEDURE DESCRIPTION: After obtaining an informed consent, the patient was brought to the cardiac laborer cheesemaking. The right radial artery was cannulated using micropuncture technique, the micropuncture wire passed easily then I placed a 6-Bengali sheath 11 cm in the right radial artery. After that I gave the patient 2 mg of verapamil IA and 10,000 units of heparin IV. I did perform selective right and left coronary angiogram using JR4 and JL3.5 catheters. Left heart catheterization was performed using the JR4 catheter which slid into the LV then I did pullback across aortic valve. The procedure was completed without any complication. The diagnostic procedure was performed without any complication. After that I did intervene on the right coronary artery. Please see a separate paragraph for that. SELECTIVE CORONARY ANGIOGRAM: 1. The right coronary artery is a large caliber vessel and it is a dominant vessel. The proximal RCA has mild disease only. The mid RCA has a long tubular and ulcerated plaque with possible thrombus and the lesion appeared to be in the range of 99.9%. The RCA distally appeared to have mild disease only and bifurcates into PDA and PLV branches both appear to have mild disease only. 2. The left main is angiographically normal. It bifurcates into left circumflex and left anterior descending artery. 3. The left circumflex is a large caliber vessel. It is a nondominant vessel. The proximal circumflex appeared to be normal. The mid circumflex has a lesion appeared to be in the range of 60% to 70%. The mid circumflex after that appeared to be angiographically normal. 4. The LAD: The proximal LAD appeared to have mild disease only. The mid LAD has another lesion appeared to be in the range of 50%. The LAD distally appeared to be angiographically normal. The LAD gives rise into 2 diagonal branches, they appeared to have mild disease only. HEMODYNAMICS: The left ventricular end diastolic pressure was about 10 mmHg without gradient across the aortic valve. PCI OF THE RCA: Anticoagulation was initiated using heparin with continuous ACT monitoring throughout the procedure. Subsequently I did engage the RCA using JR4 guide. I did wire it using the whisper wire. I did balloon angioplasty using 2.5 x 12 mm balloon before I deployed 3.25 x 28 mm Xience drug-eluting stent where the stent was positioned under fluoroscopy guidance and deployed under 18 atmospheres for 20 seconds. After that I post dilated the stent using 3.75 mm NC balloon. The following angiogram showed excellent angiographic results and the procedure was completed without any complication. CONCLUSION: 1. Acute non ST elevation myocardial infarction. 2. Critical disease involving the mid right coronary artery with ulcerated plaque. 3. Successful stenting of the mid right coronary artery as described above. 4. Intermediate to severe disease involving the mid left circumflex. 5. Intermediate disease involving the left anterior descending artery. POSTPROCEDURE MANAGEMENT: 1. Maximize medical treatment. 2. Aggressive cholesterol control. 3. Risk factors modifications. 4. Will follow up with the patient. MMODL / IJN: [id number] /
--- NOTE | 2018-07-25 21:05 | LTR ---
July 25, 2018. Dear Dr. Martinez: Mr. Keshav Ny underwent a heart catheterization and was found to have critical disease involving the right coronary artery which was stented with good angiographic results. Thank you for allowing us to participate in his care and please do not hesitate to call if you have any question or concerns. MMODL / IJN: [id number] /
[2018-07-25] MEDS: ATORVASTATIN 80 MG TAB PO SCH (21:07)
--- NOTE | 2018-07-25 23:15 | PN ---
PROGRESS NOTE SUBJECTIVE: 52-year-old white male who came in with a non STEMI, elevated troponins x2. Went for heart catheterization today with stenting of the right coronary artery, obstruction from 99% to 0%. Possible discharge home next 1-2 days pending Cardiology course. MOHAN / ROLANDA: [id number] /
[2018-07-26 05:27] LABS: Basophils # (A) 0.1 k/uL (0-0.2); Basophils % (A) 1 %; Eosinophils # (A) 0.6 k/uL (0-0.7); Eosinophils % (A) 6 %; HCT 45.6 % (39.0-53.0); HGB 15.1 gm/dL (13.0-17.5); Lymphocytes # (A) 1.8 k/uL (1.0-4.8); Lymphocytes % (A) 20 %; MCH 31.4 pg (25.0-35.0); MCV 95.1 fL (80.0-100.0); Mean Platelet Volume 6.9; Monocytes # (A) 0.6 k/uL (0-1.0); Monocytes % (A) 7 %; Neutrophils # (A) 5.8 k/uL (1.3-7.7); Neutrophils % (A) 63 %; Platelet Count 201 k/uL (150-450); RDW 13.2 % (11.5-15.5); WBC 9.2 k/uL (3.8-10.6)
--- NOTE | 2018-07-26 07:21 | P.PN ---
Subjective Progress Note Date: 07/26/18 Principal diagnosis: Acute non-ST elevation DE This is a pleasant 52-year-old gentleman with a past medical history significant for hypertension and dyslipidemia who presented to the hospital with a chest discomfort and ruled in for acute non-ST me. He underwent a heart cathete rization and was found to have critical disease involving the mid RCA which was a stented with a good angiographic results. Also he was found to have disease involving the left circumflex and LAD. Both where not critical. The echocardiogram revealed mildly impaired LV function was EF between 45-50%. On follow-up with him today, July 262018, he seems to be asymptomatic from the cardiac standpoint overview. The right radial site looks good with a good pulse. He is on dual antiplatelet therapy along with a statin. I recommended keeping the patient for one more day in the hospital for possible discharge home tomorrow. Objective - Vital Signs Vital signs: Vital Signs Temp 97.9 F 07/26/18 04:00 Pulse 65 07/26/18 06:00 Resp 16 07/26/18 06:00 BP 130/74 07/26/18 06:00 Pulse Ox 94 L 07/26/18 04:00 Intake & Output 07/25/18 07/26/18 07/26/18 18:59 06:59 18:59 Intake Total 307.148 3073 Output Total 1310 325 Balance -546.558 695 Weight 109.5 kg Intake: IV 700 300 Sodium Chloride 0.9% 1, 500 300 000 ml @ 100 mls/hr IV . Q10H [facility] Rx#:[id number] Intake, IV Titration 63.442 Amount Heparin Sod,Pork in 0.45% 63.442 NaCl 25,000 unit In 0.45 % NaCl 1 250ml.bag @ 8. 714 UNITS/KG/HR 10 mls/hr IV .Q24H [facility] Rx#: [id number] Oral 720 Output: Urine 1310 325 Other: Voiding Method Urinal Urinal # Voids 1 0 - Constitutional General appearance: Present: no acute distress - Respiratory Respiratory: bilateral: CTA - Cardiovascular Rhythm: regular Heart sounds: normal: S1, S2 - Labs CBC & Chem 7: 07/26/18 04:57 07/26/18 04:57 Assessment and Plan Assessment: Assessment #1 acute non-ST elevation myocardial infarction #2 status post PCI of the RCA #3 intermediate to severe disease involving the left circumflex and LAD #4 hypertension #5 dyslipidemia Plan #1 continue the current medical regimen including dual antiplatelet therapy a long with anti-ischemic medication along with high intensity statin #2 the echocardiogram was reviewed and revealed mildly impaired LV function #3 follow-up with the patient
[2018-07-26] MEDS: THYROID, PORK 30 MG TAB PO SCH (09:17)
[2018-07-26] MEDS: TICAGRELOR 90 MG TAB PO SCH ×2 (09:18→22:22)
[2018-07-26] MEDS: ASPIRIN 81 MG PO SCH (09:18)
[2018-07-26] MEDS: METOPROLOL TARTRATE 25 MG TAB PO SCH ×2 (09:18→22:22)
[2018-07-26 10:17] VITALS: BMI 36.7
--- NOTE | 2018-07-26 20:56 | PN ---
PROGRESS NOTE SUBJECTIVE: 52-year-old white male status post right coronary artery PTCA. Risk factor modifications reviewed with him. CARDIOVASCULAR: S1-S2. LUNGS: Clear. PSYCH: Fair mood and affect. ASSESSMENT: Status post non STEMI, PTCA right coronary artery. Risk factor modification. Medicines reviewed. Home tomorrow. MMODL / IJN: [id number] /
[2018-07-26] MEDS: ATORVASTATIN 80 MG TAB PO SCH (22:21)
[2018-07-27 05:26] LABS: Basophils # (A) 0.1 k/uL (0-0.2); Basophils % (A) 1 %; Eosinophils # (A) 0.8 k/uL (0-0.7); Eosinophils % (A) 8 %; HGB 14.9 gm/dL (13.0-17.5); Lymphocytes # (A) 1.8 k/uL (1.0-4.8); Lymphocytes % (A) 18 %; MCH 31.3 pg (25.0-35.0); MCHC 33.1 g/dL (31.0-37.0); MCV 94.5 fL (80.0-100.0); Mean Platelet Volume 7.8; Monocytes # (A) 0.7 k/uL (0-1.0); Monocytes % (A) 7 %; Neutrophils # (A) 6.6 k/uL (1.3-7.7); Neutrophils % (A) 64 %; Platelet Count 200 k/uL (150-450); RBC 4.77 m/uL (4.30-5.90); RDW 13.6 % (11.5-15.5); WBC 10.3 k/uL (3.8-10.6)
--- NOTE | 2018-07-27 07:50 | P.PN ---
Subjective Progress Note Date: 07/27/18 Principal diagnosis: Acute non-ST elevation GA This is a pleasant 52-year-old gentleman with a past medical history significant for hypertension and dyslipidemia who presented to the hospital with a chest discomfort and ruled in for acute non-ST me. He underwent a heart cathete rization and was found to have critical disease involving the mid RCA which was a stented with a good angiographic results. Also he was found to have disease involving the left circumflex and LAD. Both where not critical. The echocardiogram revealed mildly impaired LV function was EF between 45-50%. On follow-up with him today, July 272018, he seems to be asymptomatic from the cardiac standpoint overview. The right radial site looks good with a good pulse. He is on dual antiplatelet therapy along with a statin. From the cardiovascular standpoint of view, the patient can be discharged home. Objective - Vital Signs Vital signs: Vital Signs Temp 98.7 F 07/27/18 00:00 Pulse 69 07/27/18 04:00 Resp 14 07/27/18 04:00 BP 123/71 07/27/18 04:00 Pulse Ox 96 07/27/18 00:00 Intake & Output 07/26/18 07/27/18 07/27/18 18:59 06:59 18:59 Output Total 750 Balance -750 Weight 109.5 kg 112.7 kg Output: Urine 750 Other: Voiding Method Urinal Urinal # Voids 1 1 # Bowel Movements 1 - Constitutional General appearance: Present: no acute distress - Respiratory Respiratory: bilateral: CTA - Cardiovascular Rhythm: regular Heart sounds: normal: S1, S2 - Labs CBC & Chem 7: 07/27/18 04:52 07/26/18 04:57 Labs: Abnormal Lab Results - Last 24 Hours (Table) 07/27/18 Range/Units 04:52 Eosinophils # 0.8 H (0-0.7) k/uL Assessment and Plan Assessment: Assessment #1 acute non-ST elevation myocardial infarction #2 status post PCI of the RCA #3 intermediate to severe disease involving the left circumflex and LAD #4 hypertension #5 dyslipidemia Plan #1 continue the current medical regimen including dual antiplatelet therapy along with anti-ischemic medication along with high intensity statin #2 the echocardiogram was reviewed and revealed mildly impaired LV function #3 the patient can be discharged home.
[2018-07-27] MEDS: THYROID, PORK 30 MG TAB PO SCH (08:47)
[2018-07-27] MEDS: METOPROLOL TARTRATE 25 MG TAB PO SCH (08:48)
[2018-07-27] MEDS: ASPIRIN 81 MG PO SCH (08:48)
[2018-07-27] MEDS: TICAGRELOR 90 MG TAB PO SCH (08:48)
[2018-07-27 08:49] VITALS: BP 125/63; PULSE 67; RESP 19; TEMP 98.3
--- NOTE | 2018-07-27 10:29 | P.DS ---
Providers Date of admission: 07/23/18 18:47 Expected date of discharge: 07/27/18 Attending physician: Bryon Martinez Consults: 07/24/18 07:18 Consult Physician Routine Consulting Provider: Polly Alberto Consult Reason/Comments: nstemi Do you want consulting provider notified?: Already Contacted 07/25/18 13:47 Consult Physician Routine Consulting Provider: [facility] Consult Reason/Comments: Post Interventional patient Do you want consulting provider notified?: Already Contacted Primary care physician: Bryon Martinez [place] [facility] Course: Final Diagnoses: Acute non-STEMI, status post PTCA of the RCA Intermediate to severe disease of the left circumflex and LAD Hypertension Dyslipidemia Mild pulmonary hypertension Hospital course: This a 52-year-old gentleman presented to the hospital with acute non-STEMI. Evaluated by cardiology. Status post cardiac catheterization with stenting of the mid RCA, also had intermediate to severe disease of the left circumflex and LAD-maximizing medical treatment. Dual antiplatelet therapy, PPI, statin, beta meka, with factor modification. EF 45-50%. Telemetry reporting sinus rhythm with depressed ST .Significant clinical improvement. Patient has been cleared by cardiology for discharge. Patient is being discharged home in a stable condition with fair prognosis. Exam: GENERAL: Alert and oriented times, no acute distress CARDIOVASCULAR: S1, S2 regular. No murmur RESPIRATION: Breath sounds diminished in the bases. No rhonchi or crackles. ABDOMEN: Soft, nontender . No guarding. no masses palpable. Bowel sounds heard. NERVOUS SYSTEM: No gross focal deficits. The impression and plan of care has been dictated as directed. : I performed a history and examination of this patient, discussed the same with the dictator. I agree with the dictator's note ,documented as a scribe. Any additional findings or plans will be noted. Time taken: 35 minutes Patient Condition at Discharge: Stable Plan - Discharge Summary Discharge Rx Participant: Yes New Discharge Prescriptions: New Nitroglycerin Sl Tabs [Nitrostat] 0.4 mg SUBLINGUAL Q5M PRN #100 tab PRN Reason: Chest Pain Aspirin EC [Ecotrin Low Dose] 81 mg PO DAILY #30 tablet. Pantoprazole Sodium [Protonix] 40 mg PO DAILY #30 tablet. Atorvastatin [Lipitor] 80 mg PO HS #30 tab Metoprolol Tartrate [Lopressor] 25 mg PO BID #60 tab Clopidogrel [Plavix] 75 mg PO DAILY #30 tab Continue Thyroid,Pork [[place] Thyroid] 60 mg PO DAILY Discharge Medication List Thyroid,Pork [[place] Thyroid] 60 mg PO DAILY 07/23/18 [History] Aspirin EC [Ecotrin Low Dose] 81 mg PO DAILY #30 tablet. 07/27/18 [Rx] Atorvastatin [Lipitor] 80 mg PO HS #30 tab 07/27/18 [Rx] Clopidogrel [Plavix] 75 mg PO DAILY #30 tab 07/27/18 [Rx] Metoprolol Tartrate [Lopressor] 25 mg PO BID #60 tab 07/27/18 [Rx] Nitroglycerin Sl Tabs [Nitrostat] 0.4 mg SUBLINGUAL Q5M PRN #100 tab 07/27/18 [Rx] Pantoprazole Sodium [Protonix] 40 mg PO DAILY #30 tablet. 07/27/18 [Rx] Follow up Appointment(s)/Referral(s): Tyrese Warren MD [STAFF PHYSICIAN] - 1 Week Bryon Martinez MD [Primary Care Provider] - 1 Week [facility], [NON-STAFF] - 1-2 Days Ambulatory/Diagnostic Orders: Complete Blood Count w/diff [LAB.AMB] Time Frame: 1 Week, Location: None Selected Activity/Diet/Wound Care/Special Instructions: Confirm cardiology follow-up appointment per to discharge.
[2018-07-27] MEDS ORDERED: CLOPIDOGREL 75 MG TAB PO STA (10:45)
[2018-07-28] MEDS ORDERED: CLOPIDOGREL 75 MG TAB PO SCH (09:00)
== END 2018-07-27 12:21 | disposition home health service (06) | DRG 247 ==
LOC: EC 16:57 → 2SICU 18:47
PROVIDERS: ADMIT Family Medicine; ATTEND Family Medicine
PROC: B2111ZZ Fluoroscopy of Multiple Coronary Arteries using Low Osmolar Contrast (ICD-10-PCS; 2018-07-25)
PROC: 027034Z Dilation of Coronary Artery, One Artery with Drug-eluting Intraluminal Device, Percutaneous Approach (ICD-10-PCS; principal; 2018-07-25 12:00)
PROC: 4A023N7 Measurement of Cardiac Sampling and Pressure, Left Heart, Percutaneous Approach (ICD-10-PCS; 2018-07-25 12:00)
DX: I21.4 Non-ST elevation (NSTEMI) myocardial infarction (principal); I27.20 Pulmonary hypertension, unspecified; E66.01 Morbid (severe) obesity due to excess calories; F95.2 Tourette's disorder; I10 Essential (primary) hypertension; E03.9 Hypothyroidism, unspecified; E78.5 Hyperlipidemia, unspecified; R00.0 Tachycardia, unspecified; I25.10 Atherosclerotic heart disease of native coronary artery without angina pectoris; Z79.899 Other long term (current) drug therapy; Z87.891 Personal history of nicotine dependence; Z68.38 Body mass index [BMI] 38.0-38.9, adult; Z82.49 Family history of ischemic heart disease and other diseases of the circulatory system
CPT/HCPCS: 36415; 71046; 80048; 80053; 80061; 82565; 83735; 83880; 84484; 85025; 85379; 85610; 85730; 93005; 93306; 93458; 96365; 96366; 96376; 99291; C1874

== ENCOUNTER 2018-07-27 22:16 | Emergency (ER) | payer MEDICARE ==
[2018-07-27] MEDS ORDERED: TOPICAL SKIN ADHESIVE 1 EACH AMP TOPICAL ONE (22:58)
--- NOTE | 2018-07-27 23:11 | ED ---
General Adult HPI - General Chief complaint: Recheck/Abnormal Lab/Rx Stated complaint: Post op complications Time Seen by Provider: 07/27/18 22:43 Source: EMS Mode of arrival: EMS Limitations: no limitations - History of Present Illness Initial comments: 52-year-old male patient presents to the emergency department today for evaluation of bleeding from a previous IV site. Patient states that he had a cardiac catheterization performed today had 2 IVs in his arm. Patient states the one IV site started oozing blood tonight. Patient states he held pressure over the area was unable to get the bleeding to stop. Patient states he did soak through couple dressings. Patient states he then presented here for further evaluation. Patient states was started on Plavix during this last admission. He was discharged today. He denies any other concerns. Denies any dizziness or weakness. Patient denies any recent rash, fever, chills, shortness breath, chest pain, abdominal pain, nausea, vomiting, diarrhea, constipation, back pain, numbness, tingling, dizziness, weakness, hematuria, dysuria, urinary urgency, urinary frequency, headache, visual changes, or any other complaints. - Related Data Home Medications Medication Instructions Recorded Confirmed Thyroid,Pork [[place] Thyroid] 60 mg PO DAILY 07/23/18 07/27/18 Previous Rx's Medication Instructions Recorded Aspirin EC [Ecotrin Low Dose] 81 mg PO DAILY #30 tablet. 07/27/18 Atorvastatin [Lipitor] 80 mg PO HS #30 tab 07/27/18 Clopidogrel [Plavix] 75 mg PO DAILY #30 tab 07/27/18 Metoprolol Tartrate [Lopressor] 25 mg PO BID #60 tab 07/27/18 Nitroglycerin Sl Tabs [Nitrostat] 0.4 mg SUBLINGUAL Q5M PRN #100 tab 07/27/18 Pantoprazole Sodium [Protonix] 40 mg PO DAILY #30 tablet. 07/27/18 Allergies Allergy/AdvReac Type Severity Reaction Status Date / Time No Known Allergies Allergy Verified 07/27/18 22:28 Review of Systems ROS Statement: Those systems with pertinent positive or pertinent negative responses have been documented in the HPI. ROS Other: All systems not noted in ROS Statement are negative. Past Medical History Past Medical History: Hyperlipidemia Additional Past Medical History / Comment(s): tourettes syndrome History of Any Multi-Drug Resistant Organisms: None Reported Past Surgical History: Heart Catheterization With Stent Additional Past Surgical History / Comment(s): 1 stent placed 07/25/2018 Past Anesthesia/Blood Transfusion Reactions: No Reported Reaction Past Psychological History: Depression Smoking Status: Never smoker Past Alcohol Use History: None Reported Past Drug Use History: None Reported - Past Family History Mother Family Medical History: Coronary Artery Disease (CAD) General Exam Limitations: no limitations General appearance: alert, in no apparent distress, other (Social well- developed, well-nourished adult male patient in no acute distress. Vital signs upon presentation are temperature 99.5F, pulse 87, respirations 19, blood pressure 150/80, pulse ox 97% on room air.) Respiratory exam: Present: normal lung sounds bilaterally. Absent: respiratory distress, wheezes, rales, rhonchi, stridor Cardiovascular Exam: Present: regular rate, normal rhythm, normal heart sounds. Absent: systolic murmur, diastolic murmur, rubs, gallop, clicks Extremities exam: Present: full ROM, normal capillary refill, other (Puncture to the left forearm from previous IV site, is oozing bright red blood.). Absent: normal inspection, tenderness, pedal edema, joint swelling, calf tenderness Neurological exam: Present: alert, oriented X3, CN II-XII intact Psychiatric exam: Present: normal affect, normal mood Skin exam: Present: warm, dry, intact, normal color. Absent: rash Course Vital Signs 07/27/18 22:18 Temperature 99.5 F Pulse Rate 87 Respiratory 19 Rate Blood Pressure 150/80 O2 Sat by Pulse 97 Oximetry Medical Decision Making - Medical Decision Making 52-year-old male patient presented to the emergency department today for evaluation of bleeding from his IV insertion site. Patient was discharged from the hospital today. Physical examination did reveal active bleeding from the left forearm IV insertion site. Pressure was held for 20 minutes, this did not stop the bleeding. We did apply pressure and then skin adhesive. Patient was monitored for a period and showed no further evidence of bleeding. He is discharged at this time to follow-up with his primary care physician for recheck in 1-2 days. Return parameters were discussed in detail. He verbalizes understanding and agrees with this plan. Disposition Clinical Impression: Complication of intravenous catheter site Disposition: HOME SELF-CARE Condition: Good Instructions (If sedation given, give patient instructions): Skin Adhesive Care (ED) Additional Instructions: Avoid applying soap or ointments to the skin adhesive site. Do not pick or pull at glue. Follow-up through primary care physician for recheck in 1-2 days. Return to the emergency department immediately for any new, worsening, or concerning symptoms. Is patient prescribed a controlled substance at d/c from ED?: No Referrals: Bryon Martinez MD [Primary Care Provider] - 1-2 days Time of Disposition: 23:26
[2018-07-28 00:08] VITALS: BP 133/59; PULSE 79; RESP 18; TEMP 98.7
== END 2018-07-28 00:07 | disposition home or self-care (01) ==
LOC: EC 22:16
DX: T80.89XA Other complications following infusion, transfusion and therapeutic injection, initial encounter (principal); Z79.890 Hormone replacement therapy; Z95.5 Presence of coronary angioplasty implant and graft
CPT/HCPCS: 99283

== ENCOUNTER 2018-08-09 18:19 | Observation (INO) | payer MEDICARE ==
--- NOTE | 2018-08-09 18:39 | ED ---
General Adult HPI - General Chief complaint: Chest Pain Stated complaint: Chest pain Time Seen by Provider: 08/09/18 18:28 Source: patient Mode of arrival: ambulatory Limitations: no limitations - History of Present Illness Initial comments: Dictation was produced using [employer] dictation software. please excuse any grammatical, word or spelling errors. Chief Complaint: 52 y Old male past medical history coronary artery disease, Tourette's presents with episode of chest pain relieved with nitro. History of Present Illness: Is a 52-year-old male. 2 weeks ago patient had cardiac catheterization with coronary artery stent placement. Patient states he was [place] [employer] when is feeling fine. All of a sudden he felt sudden crushing discomfort substernally. Denies any radiation of symptoms to her shoulders or jaw. Patient denies any exacerbating or mitigating factors. He took a picture closed with improvement of symptoms. Patient still having some more symptoms so he took another nitroglycerin with alleviation of the remaining pain. Patient also is reports associated diaphoresis. Denies any nausea. Denies any relation pain. Patient feels well at this point. Did express some palpitations however that subsided. The ROS documented in this emergency department record has been reviewed and confirmed by me. Those systems with pertinent positive or negative responses have been documented in the HPI. All other systems are other negative and/or noncontributory. PHYSICAL EXAM: General Impression: Alert and oriented x3, not in acute distress HEENT: Normocephalic atraumatic, extra-ocular movements intact, pupils equal and reactive to light bilaterally, mucous membranes moist. Cardiovascular: Heart regular rate and rhythm, S1&S2 audible, no murmurs, rubs or gallops Chest: Lungs clear to auscultation bilaterally, no rhonchi, no wheeze, no rales Abdomen: Bowel sounds present, abdomen soft, non-tender, non-distended, no organomegaly Musculoskeletal: Pulses present and equal in all extremities, no peripheral edema Motor: no focal deficits noted Neurological: CN II-XII grossly intact, no focal motor or sensory deficits noted Skin: Intact with no visualized rashes Psych: Normal affect and mood ED course: 52-year-old male presents with chest pain. Vital signs upon arrival are within acceptable limits.Patient is reevaluated, continued to be symptom- free. Laboratory evaluation obtained. CBC, coag panel, metabolic panel, cardiac enzymes are negative. Chest x-ray is nonacute. Given patient's recent stent placement and concern for cardiac ischemia patient to be placed into observation for cardiology consultation, serial troponins. Patient case was discussed with Dr. Moya who is willing to accept the admission. EKG interpretation: Ventricular rate 80, normal sinus rhythm,. Interval 134, Tristani 4, QTC 457. No MI prolongation, no QTC prolongation, T-wave inversions in the inferior leads and anterior precordial leads. This likely reflects recent cardiac catheterization - Related Data Home Medications Medication Instructions Recorded Confirmed Thyroid,Pork [[place] Thyroid] 60 mg PO DAILY 07/23/18 08/09/18 FLUoxetine HCL [PROzac] 20 mg PO HS 08/09/18 08/09/18 Lisinopril [Zestril] 2.5 mg PO DAILY 08/09/18 08/09/18 Previous Rx's Medication Instructions Recorded Aspirin EC [Ecotrin Low Dose] 81 mg PO DAILY #30 tablet. 07/27/18 Atorvastatin [Lipitor] 80 mg PO HS #30 tab 07/27/18 Clopidogrel [Plavix] 75 mg PO DAILY #30 tab 07/27/18 Metoprolol Tartrate [Lopressor] 25 mg PO BID #60 tab 07/27/18 Nitroglycerin Sl Tabs [Nitrostat] 0.4 mg SUBLINGUAL Q5M PRN #100 tab 07/27/18 Pantoprazole Sodium [Protonix] 40 mg PO DAILY #30 tablet. 07/27/18 Allergies Allergy/AdvReac Type Severity Reaction Status Date / Time No Known Allergies Allergy Verified 08/09/18 18:56 Review of Systems ROS Statement: Those systems with pertinent positive or pertinent negative responses have been documented in the HPI. ROS Other: All systems not noted in ROS Statement are negative. Past Medical History Past Medical History: Coronary Artery Disease (CAD), Hyperlipidemia Additional Past Medical History / Comment(s): tourettes syndrome History of Any Multi-Drug Resistant Organisms: None Reported Past Surgical History: Heart Catheterization With Stent Additional Past Surgical History / Comment(s): 1 stent placed 07/25/2018 Past Anesthesia/Blood Transfusion Reactions: No Reported Reaction Past Psychological History: Depression Smoking Status: Never smoker Past Alcohol Use History: None Reported Past Drug Use History: None Reported - Past Family History Mother Family Medical History: Coronary Artery Disease (CAD) General Exam Limitations: no limitations Course Vital Signs 08/09/18 08/09/18 08/09/18 18:26 18:55 19:15 Temperature 98.4 F 98.6 F Pulse Rate 92 86 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 ] Respiratory 18 18 Rate Blood Pressure 136/75 162/61 O2 Sat by Pulse 99 96 Oximetry Medical Decision Making - Lab Data Result diagrams: 08/09/18 18:50 08/09/18 18:50 Lab Results 08/09/18 08/09/18 08/09/18 Range/Units 18:50 18:50 18:50 WBC 12.1 H (3.8-10.6) k/uL RBC 5.01 (4.30-5.90) m/uL Hgb 15.7 (13.0-17.5) gm/dL Hct 47.0 (39.0-53.0) % MCV 93.9 (80.0-100.0) fL MCH 31.4 (25.0-35.0) pg MCHC 33.4 (31.0-37.0) g/dL RDW 13.0 (11.5-15.5) % Plt Count 237 (150-450) k/uL Neutrophils % 63 % Lymphocytes % 22 % Monocytes % 5 % Eosinophils % 6 % Basophils % 1 % Neutrophils # 7.6 (1.3-7.7) k/uL Lymphocytes # 2.7 (1.0-4.8) k/uL Monocytes # 0.6 (0-1.0) k/uL Eosinophils # 0.7 (0-0.7) k/uL Basophils # 0.1 (0-0.2) k/uL PT (9.0-12.0) sec INR (<1.2) APTT (22.0-30.0) sec Sodium 138 (137-145) mmol/L Potassium 4.1 (3.5-5.1) mmol/L Chloride 105 (98-107) mmol/L Carbon Dioxide 22 (22-30) mmol/L Anion Gap 11 mmol/L BUN 19 (9-20) mg/dL Creatinine 1.18 (0.66-1.25) mg/dL Est GFR (CKD-EPI)AfAm 81 (>60 ml/min/1.73 sqM) Est GFR (CKD-EPI)NonAf 70 (>60 ml/min/1.73 sqM) Glucose 129 H (74-99) mg/dL Calcium 9.8 (8.4-10.2) mg/dL Magnesium 1.9 (1.6-2.3) mg/dL Total Bilirubin 0.9 (0.2-1.3) mg/dL AST 31 (17-59) U/L ALT 28 (21-72) U/L Alkaline Phosphatase 105 (38-126) U/L CK-MB (CK-2) (0.0-2.4) ng/mL Troponin I (0.000-0.034) ng/mL NT-Pro-B Natriuret Pep 102 pg/mL Total Protein 7.5 (6.3-8.2) g/dL Albumin 4.5 (3.5-5.0) g/dL 08/09/18 08/09/18 Range/Units 18:50 18:50 WBC (3.8-10.6) k/uL RBC (4.30-5.90) m/uL Hgb (13.0-17.5) gm/dL Hct (39.0-53.0) % MCV (80.0-100.0) fL MCH (25.0-35.0) pg MCHC (31.0-37.0) g/dL RDW (11.5-15.5) % Plt Count (150-450) k/uL Neutrophils % % Lymphocytes % % Monocytes % % Eosinophils % % Basophils % % Neutrophils # (1.3-7.7) k/uL Lymphocytes # (1.0-4.8) k/uL Monocytes # (0-1.0) k/uL Eosinophils # (0-0.7) k/uL Basophils # (0-0.2) k/uL PT 10.4 (9.0-12.0) sec INR 1.0 (<1.2) APTT 25.3 (22.0-30.0) sec Sodium (137-145) mmol/L Potassium (3.5-5.1) mmol/L Chloride (98-107) mmol/L Carbon Dioxide (22-30) mmol/L Anion Gap mmol/L BUN (9-20) mg/dL Creatinine (0.66-1.25) mg/dL Est GFR (CKD-EPI)AfAm (>60 ml/min/1.73 sqM) Est GFR (CKD-EPI)NonAf (>60 ml/min/1.73 sqM) Glucose (74-99) mg/dL Calcium (8.4-10.2) mg/dL Magnesium (1.6-2.3) mg/dL Total Bilirubin (0.2-1.3) mg/dL AST (17-59) U/L ALT (21-72) U/L Alkaline Phosphatase (38-126) U/L CK-MB (CK-2) 1.2 (0.0-2.4) ng/mL Troponin I <0.012 (0.000-0.034) ng/mL NT-Pro-B Natriuret Pep pg/mL Total Protein (6.3-8.2) g/dL Albumin (3.5-5.0) g/dL Disposition Clinical Impression: Chest pain Disposition: ADMITTED IP TO THIS HOSP Condition: Fair Referrals: Bryon Martinez MD [Primary Care Provider] - 1-2 days Decision Time: 20:28
[2018-08-09 19:09] LABS: Basophils # (A) 0.1 k/uL (0-0.2); Basophils % (A) 1 %; Eosinophils # (A) 0.7 k/uL (0-0.7); Eosinophils % (A) 6 %; HGB 15.7 gm/dL (13.0-17.5); Lymphocytes # (A) 2.7 k/uL (1.0-4.8); Lymphocytes % (A) 22 %; MCH 31.4 pg (25.0-35.0); MCHC 33.4 g/dL (31.0-37.0); MCV 93.9 fL (80.0-100.0); Mean Platelet Volume 7.2; Monocytes # (A) 0.6 k/uL (0-1.0); Monocytes % (A) 5 %; Neutrophils # (A) 7.6 k/uL (1.3-7.7); Neutrophils % (A) 63 %; Platelet Count 237 k/uL (150-450); RBC 5.01 m/uL (4.30-5.90); WBC 12.1 k/uL (3.8-10.6)
[2018-08-09 19:18] LABS: Partial Thromboplastin Time 25.3 sec (22.0-30.0); Prothrombin Time 10.4 sec (9.0-12.0)
[2018-08-09 19:19] LABS: Albumin 4.5 g/dL (3.5-5.0); Calcium 9.8 mg/dL (8.4-10.2); Magnesium 1.9 mg/dL (1.6-2.3); Potassium 4.1 mmol/L (3.5-5.1); Total Bilirubin 0.9 mg/dL (0.2-1.3); Total Protein 7.5 g/dL (6.3-8.2)
--- NOTE | 2018-08-09 19:26 | XR ---
EXAMINATION TYPE: XR chest 2V DATE OF EXAM: 08/09/2018 COMPARISON: 07/23/2018 HISTORY: Chest pain TECHNIQUE: Frontal and lateral views of the chest are obtained. FINDINGS: There is no focal air space opacity, pleural effusion, or pneumothorax seen. The cardiac silhouette size is within normal limits. The osseous structures are intact. IMPRESSION: No acute cardiopulmonary process. No significant interval change.
[2018-08-09 19:57] LABS: Creatine Kinase MB 1.2 ng/mL (0.0-2.4); Troponin I <0.012 ng/mL (0.000-0.034)
[2018-08-09] MEDS ORDERED: NITROGLYCERIN SL TABS 0.4 MG TAB SUBLINGUAL PRN (20:28)
[2018-08-09] MEDS ORDERED: ASPIRIN 81 MG PO STA (20:28)
[2018-08-09] MEDS: METOPROLOL TARTRATE 25 MG TAB PO SCH (21:51)
[2018-08-09] MEDS: ATORVASTATIN 80 MG TAB PO SCH (21:52)
[2018-08-09] MEDS: FLUoxetine HCL 20 MG CAP PO SCH (23:01)
[2018-08-10 00:08] LABS: Cholesterol 135 mg/dL (<200); HDL Cholesterol 32 mg/dL (40-60)
[2018-08-10 00:24] LABS: LDL Cholesterol,Calculated 76 mg/dL (0-99); Triglycerides 133 mg/dL (<150)
[2018-08-10] MEDS ORDERED: ALPRAZolam 0.5 MG TAB PO PRN (08:50)
[2018-08-10] MEDS ORDERED: ALPRAZolam 0.25 MG TAB PO PRN (08:50)
[2018-08-10] MEDS ORDERED: SODIUM CHLORIDE 0.9% 1,000 ML in EMPTY BAG 1 BAG IV ONE (08:50)
[2018-08-10] MEDS: THYROID, PORK 30 MG TAB PO SCH (09:17)
[2018-08-10] MEDS: METOPROLOL TARTRATE 25 MG TAB PO SCH ×2 (09:17→22:05)
[2018-08-10] MEDS: ASPIRIN 325 MG TAB PO SCH (09:17)
[2018-08-10] MEDS: CLOPIDOGREL 75 MG TAB PO SCH (09:17)
[2018-08-10] MEDS ORDERED: SODIUM CHLORIDE 0.9% 100 ML BAG ONE (09:45)
[2018-08-10] MEDS ORDERED: ADENOSINE 3 MG/ML 4 ML VIAL IVP ONE (09:45)
--- NOTE | 2018-08-10 10:54 | P.CRDCN ---
History of Present Illness History of present illness: This is a pleasant 52-year-old male past medical history significant for coronary artery disease status post recent stent placement, dyslipidemia, hypertension, Tourette syndrome and hypothyroidism. He follows in the office with Dr. Warren. We have been asked to see him in consultation secondary to chest discomfort. He underwent successful stent placement to the mid RCA July 23 in the setting of a non-ST elevated myocardial infarction. At that time he also had evidence of a lesion in the mid circumflex 60-70% and a lesion in the mid LAD in the range of 50%. He is currently maintained on dual antiplatelet therapy. He states for the previous couple of weeks he has felt intermittent episodes of heavy tight sensation in the left precordial region. The symptoms have been i ntermittent no specific aggravating factors. He states he has used nitroglycerin about 4 or 5 times since his stent placement. Specifically yesterday while he was in [place] he started feeling extremely excruciating pain in the left precordial region that radiated mildly across to the right side and a little bit into the left shoulder. This was associated with acute diaphoresis. He denies associated shortness of breath, dizziness, nausea, vomiting or diaphoresis. He states his heart started racing at this time. He denies any fluttering or palpitations. He took one nitroglycerin initially yesterday and it did relieve the intensity however did not completely take the pain away. He took a second nitroglycerin which again relieved some of the intensity but did not completely take the pain away. Upon arrival to the emergency department he continued to have chest discomfort. His symptoms have since completely subsided. He is seen and examined resting comfortably in bed in no acute distress. He was seen in the office August 03 for postoperative follow-up and underwent a low level exercise stress test prior to starting cardiac rehab. Those results have not been documented yet however the patient states he was told it was normal and he could proceed with cardiac rehabilitation due to start August 13. EKG reveals sinus mechanism, T-wave inversions and ST depression in lateral lead s, incomplete right bundle branch block, T-wave inversions and ST depression in the precordial leads. Chest x-ray is negative for an acute cardiopulmonary process. Laboratory data reviewed, WBC 12.1, hemoglobin 15.7, platelets 237, sodium 138, potassium 4.1, creatinine 1.18, magnesium 1.9, cardiac enzymes negative 3, NT proBNP 102, LDL 76 and HDL 32. Current cardiac medications include aspirin 81 mg daily, Plavix 75 mg daily, atorvastatin 80 mg daily, lisinopril 2.5 mg daily and Lopressor 25 mg twice a day. Most recent echocardiogram obtained earlier this month revealed mildly impaired LV systolic function with ejection fraction 45-50% with nasal inferior LV wall motion hypokinesia, mild tricuspid regurgitation and mild pulmonary hypertension with an RVSP of 38 mmHg. At the time of my exam: CONSTITUTIONAL: Denies fever. Denies chills. EYES: Denies blurred vision. Denies vision changes. Denies eye pain. EARS, NOSE, MOUTH & THROAT: Denies headache. Denies sore throat. Denies ear pain. CARDIOVASCULAR: Denies chest pain. Denies shortness of breath. Denies orthopnea. Denies PND. Denies palpitations. RESPIRATORY: Denies cough. GASTROINTESTINAL: Denies abdominal pain. Denies diarrhea. Denies constipation. Denies nausea. Denies vomiting. MUSCULOSKELETAL: Denies myalgias. INTEGUMENTARY: Denies pruitis. Denies rash. NEUROLOGIC: Denies numbness. Denies tingling. Denies weakness. PSYCHIATRIC: Denies anxiety. Denies depression. ENDOCRINE: Denies fatigue. Denies weight change. Denies polydipsia. Denies polyurina. GENITOURINARY: Denies burning, hematuria or urgency with micturation. HEMATOLOGIC: Denies history of anemia. Denies bleeding. Blood pressure 152/72 heart rate afebrile maintaining oxygen saturation on nasal cannula GENERAL: This is a 52-year-old male in no apparent distress at the time of my examination. HEENT: Head is atraumatic, normocephalic. Pupils are equal, round. Sclerae anicteric. Conjunctivae are clear. Mucous membranes of the mouth are moist. Neck is supple. There is no jugular venous distention. No carotid bruit is heard. LUNGS: Clear to auscultation no wheezes, rales or rhonchi. No chest wall tenderness is noted on palpation or with deep breathing. HEART: Regular rate and rhythm without murmurs, rubs or gallops. S1 and S2 heard. ABDOMEN: Soft, nontender. Bowel sounds are heard. No organomegaly noted. EXTREMITIES: No evidence of peripheral edema and no calf tenderness noted. VASCULAR: Radial and dorsalis pedis pulses palpated, no evidence of clubbing. NEUROLOGIC: Patient is awake, alert and oriented x3. ASSESSMENT Unstable angina Coronary artery disease status post recent stent placement to the mid RCA, 60- 70% lesion in the mid circumflex and 50% lesion in the mid LAD Hypertension Dyslipidemia Obesity, BMI 37 PLAN Symptoms are concerning for unstable angina with known lesion in the mid circumflex and mid LAD, suggest possible FFR. Proceed with cardiac catheterization. I have discussed the risks, benefits and alternative therapies for the above-mentioned procedure and for both sedation/analgesia as well as necessary blood product administration, if indicated, as they pertain to this patient. The patient has indicated understanding and acceptance of the risks and procedures discussed. Questions have been answered appropriately. Further recommendations to follow based upon clinical course. Thank you kindly for this consultation. Nurse Practitioner note has been reviewed, I agree with a documented findings and plan of care. Patient was seen and examined. Past Medical History Past Medical History: Coronary Artery Disease (CAD), Hyperlipidemia, Hypertension, Thyroid Disorder Additional Past Medical History / Comment(s): tourettes syndrome History of Any Multi-Drug Resistant Organisms: None Reported Past Surgical History: Heart Catheterization With Stent Additional Past Surgical History / Comment(s): 1 stent placed 07/25/2018 Past Anesthesia/Blood Transfusion Reactions: No Reported Reaction Date of Last Stent Placement:: 07/25/18 Past Psychological History: Anxiety, Depression Smoking Status: Never smoker Past Alcohol Use History: None Reported Past Drug Use History: None Reported - Past Family History Mother Family Medical History: Coronary Artery Disease (CAD) Medications and Allergies Home Medications Medication Instructions Recorded Confirmed Type Thyroid,Pork [[place] Thyroid] 60 mg PO DAILY 07/23/18 08/09/18 History Aspirin EC [Ecotrin Low Dose] 81 mg PO DAILY #30 tablet. 07/27/18 08/09/18 Rx Atorvastatin [Lipitor] 80 mg PO HS #30 tab 07/27/18 08/09/18 Rx Clopidogrel [Plavix] 75 mg PO DAILY #30 tab 07/27/18 08/09/18 Rx Metoprolol Tartrate [Lopressor] 25 mg PO BID #60 tab 07/27/18 08/09/18 Rx Nitroglycerin Sl Tabs [Nitrostat] 0.4 mg SUBLINGUAL Q5M PRN #100 tab 07/27/18 08/09/18 Rx Pantoprazole Sodium [Protonix] 40 mg PO DAILY #30 tablet. 07/27/18 08/09/18 Rx FLUoxetine HCL [PROzac] 08/09/18 History FLUoxetine HCL [PROzac] 20 mg PO HS 08/09/18 08/09/18 History Lisinopril [Zestril] 2.5 mg PO DAILY 08/09/18 08/09/18 History Allergies Allergy/AdvReac Type Severity Reaction Status Date / Time No Known Allergies Allergy Verified 08/09/18 18:56 Physical Exam Vitals: Vital Signs Temp Pulse Pulse Resp BP BP Pulse Ox 08/10/18 04:00 98.0 F 61 16 126/76 98 08/10/18 03:11 69 17 08/10/18 00:25 98.0 F 57 L 16 99/56 98 08/09/18 23:28 65 16 08/09/18 21:29 98.4 F 67 16 132/68 96 08/09/18 20:49 98.4 F 75 18 140/66 95 08/09/18 20:45 86 17 08/09/18 19:15 98.6 F 86 18 162/61 96 08/09/18 18:55 70 08/09/18 18:26 98.4 F 92 18 136/75 99 Intake and Output 08/09/18 08/10/18 08/10/18 22:59 06:59 14:59 Intake Total 0 Balance 0 Intake: Oral 0 Other: Voiding Method Toilet # Voids 1 1 Weight 111.13 kg Results 08/09/18 18:50 08/09/18 18:50 Cardiac Enzymes 08/09/18 08/09/18 08/10/18 Range/Units 18:50 18:50 00:42 AST 31 (17-59) U/L CK-MB (CK-2) 1.2 (0.0-2.4) ng/mL Troponin I <0.012 <0.012 (0.000-0.034) ng/mL 08/10/18 Range/Units 06:14 AST (17-59) U/L CK-MB (CK-2) (0.0-2.4) ng/mL Troponin I <0.012 (0.000-0.034) ng/mL Coagulation 08/09/18 Range/Units 18:50 PT 10.4 (9.0-12.0) sec APTT 25.3 (22.0-30.0) sec Lipids 08/09/18 Range/Units 18:50 Triglycerides 133 (<150) mg/dL Cholesterol 135 (<200) mg/dL HDL Cholesterol 32 L (40-60) mg/dL CBC 08/09/18 Range/Units 18:50 WBC 12.1 H (3.8-10.6) k/uL RBC 5.01 (4.30-5.90) m/uL Hgb 15.7 (13.0-17.5) gm/dL Hct 47.0 (39.0-53.0) % Plt Count 237 (150-450) k/uL Comprehensive Metabolic Panel 08/09/18 Range/Units 18:50 Sodium 138 (137-145) mmol/L Potassium 4.1 (3.5-5.1) mmol/L Chloride 105 (98-107) mmol/L Carbon Dioxide 22 (22-30) mmol/L BUN 19 (9-20) mg/dL Creatinine 1.18 (0.66-1.25) mg/dL Glucose 129 H (74-99) mg/dL Calcium 9.8 (8.4-10.2) mg/dL AST 31 (17-59) U/L ALT 28 (21-72) U/L Alkaline Phosphatase 105 (38-126) U/L Total Protein 7.5 (6.3-8.2) g/dL Albumin 4.5 (3.5-5.0) g/dL Current Medications Generic Name Dose Route Start Last Admin Trade Name Freq PRN Reason Stop Dose Admin Aspirin 325 mg 08/10/18 09:00 Aspirin PO DAILY [facility] Atorvastatin Calcium 80 mg 08/09/18 21:00 08/09/18 21:52 Lipitor PO 80 mg HS CH[facility]O Administration Clopidogrel Bisulfate 75 mg 08/10/18 09:00 Plavix PO DAILY [facility] Fluoxetine HCl 20 mg 08/09/18 22:15 08/09/18 23:01 Prozac PO 20 mg HS [facility]O Administration Metoprolol Tartrate 25 mg 08/09/18 21:00 08/09/18 21:51 Lopressor PO 25 mg BID [facility] Administration Nitroglycerin 0.4 mg 08/09/18 20:28 Nitrostat SUBLINGUAL Q5M PRN Chest Pain Thyroid 60 mg 08/10/18 09:00 [place] Thyroid PO DAILY [facility]O Intake and Output 08/09/18 08/10/18 08/10/18 22:59 06:59 14:59 Intake Total 0 Balance 0 Intake: Oral 0 Other: Voiding Method Toilet # Voids 1 1 Weight 111.13 kg 08/09/18 18:50 08/09/18 18:50
[2018-08-10] MEDS ORDERED: IV FLUID CONTINUATION 700 ML IV ONE (12:30)
[2018-08-10] MEDS ORDERED: MIDAZOLAM (PF) 2 MG/2 ML VIAL IV ONE ×2 (12:40→12:50)
[2018-08-10] MEDS ORDERED: LIDOCAINE 1% INJ 10MG/ML (20 ML MDV) SQ ONE (12:42)
[2018-08-10] MEDS: VERAPAMIL SYRINGE (5 MG/10 ML) INTRAARTER ONE ×2 (12:44→13:16)
[2018-08-10] MEDS ORDERED: BIVALIRUDIN BOLUS 250 MG/50 ML IV ONE (12:48)
[2018-08-10] MEDS ORDERED: BIVALIRUDIN 250 MG in SODIUM CHLORIDE 0.9% 50 ML IV ONE (12:49)
[2018-08-10] MEDS ORDERED: fentaNYL (PF) 50 MCG/ML 2 ML AMP IV ONE (12:57)
[2018-08-10] MEDS ORDERED: CLOPIDOGREL 75 MG TAB PO ONE (13:16)
[2018-08-10] MEDS ORDERED: IOPAMIDOL-370 125ML BTL INJ ONE (13:16)
[2018-08-10] MEDS ORDERED: ZOLPIDEM 5 MG TAB PO PRN (13:20)
[2018-08-10] MEDS ORDERED: NITROGLYCERIN SL TABS 0.4 MG TAB SUBLINGUAL PRN (13:20)
[2018-08-10] MEDS ORDERED: ATROPINE SULFATE 0.1 MG/ML 10ML SYRINGE IV PRN (13:20)
[2018-08-10] MEDS ORDERED: RX INFO: IV CONTRAST WAS GIVEN 1 EACH MISC MISCELLANE PRN (13:20)
[2018-08-10] MEDS ORDERED: MAG HYDROX/AL HYDROX/SIMETH 30 ML CUP PO PRN (13:20)
--- NOTE | 2018-08-10 13:20 | P.HPIM ---
History of Present Illness H&P Date: 08/10/18 Chief Complaint: Chest pain This is a 52-year-old gentleman presented to the ER with chest pain unrelieved by 2 nitro sublinguals with a recent non-STEMI with stent placement of the mid RCA, also with mid circumflex(60-70%) and mid LAD( 50%) lesions ,Tourette's syndrome and multiple other medical issues. Reports over the last 2 weeks he experienced fluctuating pressure sensations in the left lower chest area. he was sitting in taoism, developed mid substernal crushing discomfort accompanied by palpitations, diaphoresis with no radiation, no nausea, no vomiting, no di arrhea. Denies lightheadedness dizziness or focal deficits. EKG reported normal sinus rhythm ,T-wave inversions and ST depression in lateral leads, incomplete right bundle branch block, T-wave inversions and ST depression in the precordial leads. VSS. Troponins negative 3. Chest x-ray reporting non acute.magnesium 1.9, potassium 4.1, creatinine 1.18, hemoglobin 15.7, platelets 237.Rcent echoca rdiogram reports mildly impaired LV systolic function with ejection fraction 45- 50% with mild pulmonary hypertension. Currently, symptoms have subsided. Evaluated by cardiology and patient is scheduled for cardiac catheterization today. Review of Systems ROS Statement: Those systems with pertinent positive or pertinent negative responses have been documented in the HPI. ROS Other: All systems not noted in ROS Statement are negative. Past Medical History Past Medical History: Coronary Artery Disease (CAD), Hyperlipidemia, Hypertension, Thyroid Disorder Additional Past Medical History / Comment(s): tourettes syndrome History of Any Multi-Drug Resistant Organisms: None Reported Past Surgical History: Heart Catheterization With Stent Additional Past Surgical History / Comment(s): 1 stent placed 07/25/2018 Past Anesthesia/Blood Transfusion Reactions: No Reported Reaction Date of Last Stent Placement:: 07/25/18 Past Psychological History: Anxiety, Depression Smoking Status: Never smoker Past Alcohol Use History: None Reported Past Drug Use History: None Reported - Past Family History Mother Family Medical History: Coronary Artery Disease (CAD) Medications and Allergies Home Medications Medication Instructions Recorded Confirmed Type Thyroid,Pork [[place] Thyroid] 60 mg PO DAILY 07/23/18 08/09/18 History Aspirin EC [Ecotrin Low Dose] 81 mg PO DAILY #30 tablet. 07/27/18 08/09/18 Rx Atorvastatin [Lipitor] 80 mg PO HS #30 tab 07/27/18 08/09/18 Rx Clopidogrel [Plavix] 75 mg PO DAILY #30 tab 07/27/18 08/09/18 Rx Metoprolol Tartrate [Lopressor] 25 mg PO BID #60 tab 07/27/18 08/09/18 Rx Nitroglycerin Sl Tabs [Nitrostat] 0.4 mg SUBLINGUAL Q5M PRN #100 tab 07/27/18 08/09/18 Rx Pantoprazole Sodium [Protonix] 40 mg PO DAILY #30 tablet. 07/27/18 08/09/18 Rx FLUoxetine HCL [PROzac] 08/09/18 History FLUoxetine HCL [PROzac] 20 mg PO HS 08/09/18 08/09/18 History Lisinopril [Zestril] 2.5 mg PO DAILY 08/09/18 08/09/18 History Allergies Allergy/AdvReac Type Severity Reaction Status Date / Time No Known Allergies Allergy Verified 08/09/18 18:56 Physical Exam Vitals: Vital Signs Temp Pulse Pulse Pulse Resp BP BP 08/10/18 07:10 97.5 F L 72 18 152/72 08/10/18 04:00 98.0 F 61 16 08/10/18 03:11 69 17 08/10/18 00:25 98.0 F 57 L 16 08/09/18 23:28 65 16 08/09/18 21:29 98.4 F 67 16 08/09/18 20:49 98.4 F 75 18 140/66 08/09/18 20:45 86 17 08/09/18 19:15 98.6 F 86 18 162/61 08/09/18 18:55 70 08/09/18 18:26 98.4 F 92 18 136/75 BP Pulse Ox 08/10/18 07:10 100 08/10/18 04:00 126/76 98 08/10/18 03:11 08/10/18 00:25 99/56 98 08/09/18 23:28 08/09/18 21:29 132/68 96 08/09/18 20:49 95 08/09/18 20:45 08/09/18 19:15 96 08/09/18 18:55 08/09/18 18:26 99 Intake and Output 08/09/18 08/10/18 08/10/18 22:59 06:59 14:59 Intake Total 0 Balance 0 Intake: Oral 0 Other: Voiding Method Toilet # Voids 1 1 Weight 111.13 kg PHYSICAL EXAM: VITAL SIGNS: As above GENERAL: Sitting up in bed, no acute distress HEENT: Conjunctivae normal. eyes normal. Oral mucosa dry NECK: No JVD. No thyroid enlargement. No LNs CARDIOVASCULAR: S1, S2 regular, No murmur, rubs or gallops. No chest wall te nderness upon palpation/deep breathing. RESPIRATION: Breath sounds diminished in the bases. No rhonchi or crackles. No bronchial breathing. ABDOMEN: Soft, nondistended, nontender . No guarding. no masses palpable. Bowel sounds heard. LEGS: No edema. no swelling . No calf tenderness. No clubbing. PSYCHIATRY: Alert and oriented -3, mood and affect normal. NERVOUS SYSTEM: Cranial N 2-12 grossly normal. Moves all 4 limbs. No focal deficits. Skin: no lesions, no rash Joints: No active swelling. No inflammation. Lymphatic system. No LN neck axilla or groin. Results CBC & Chem 7: 08/09/18 18:50 08/09/18 18:50 Labs: Abnormal Lab Results - Last 24 Hours (Table) 08/09/18 08/09/18 08/09/18 Range/Units 18:50 18:50 18:50 WBC 12.1 H (3.8-10.6) k/uL Glucose 129 H (74-99) mg/dL HDL Cholesterol 32 L (40-60) mg/dL Thrombosis Risk Factor Assmnt - Choose All That Apply Any of the Below Risk Factors Present?: Yes Each Factor Represents 1 point: Heart failure (<1month), Obesity (BMI >25) Other Risk Factors: No Other congenital or acquired thrombophilia - If yes, enter type in comment: No Thrombosis Risk Factor Assessment Total Risk Factor Score: 2 Thrombosis Risk Factor Assessment Level: Low Risk Assessment and Plan Assessment: -Chest pain, possible unstable angina -Recent non-STEMI with stent placement of the mid RCA, 60-70% mid circumflex lesion and 50% mid LAD lesion -Hypertension -Morbid obesity, BMI 37.3 -Hyperlipidemia Plan: Continue current medication regime ,monitoring and symptomatic treatment. Home meds have been reviewed and resumed. As mentioned above patient has been evaluated by cardiology and scheduled for cardiac catheterization. Further recommendations to follow. The impression and plan of care has been dictated as directed. : I performed a history and examination of this patient, discussed the same with the dictator. I agree with the dictator's note ,documented as a scribe. Any additional findings or plans will be noted. Time taken: 35 minutes
[2018-08-10] MEDS ORDERED: SODIUM CHLORIDE 0.9% 1,000 ML IV SCH (13:30)
[2018-08-10 13:46] VITALS: RESP 16
--- NOTE | 2018-08-10 13:59 | CC ---
CARDIAC CATHETERIZATION REPORT DATE OF SERVICE: 08/10/2018 PERFORMING PHYSICIAN: Tyrese Warren MD, Canoe Inspector Final. PROCEDURE PERFORMED: 1. Selective right and left coronary angiogram. 2. Left heart catheterization. 3. Fractional flow reserve FFR of the RCA of the left circumflex. 4. Successful stenting of the mid left circumflex using 3.0 x 15 mm Xience SAMUEL with reduction of stenosis from 70% to 0%. INDICATION: This is a pleasant 52-year-old gentleman who was admitted to the hospital two weeks ago with acute non ST elevation myocardial infarction. He underwent a heart catheterization and that revealed critical disease involving the RCA which was stented. At that point, he was found to have intermediate to severe disease involving the left circumflex and intermediate disease involving the LAD. He presented again to the hospital with chest discomfort and ruled out for acute coronary syndrome. He was admitted to the OBS unit. Because of the nature of his symptoms, a heart catheterization was advised. APPROACH: Right radial artery. COMPLICATION: None. LEVEL OF SEDATION: Moderate with sedation length of 38 minutes. PROCEDURE DESCRIPTION: After obtaining an informed consent, the patient was brought to the cardiac culture media laboratory assistant. The right radial artery was cannulated using micropuncture technique and a micropuncture wire passed easily, then I placed a 5-Uzbek sheath in the right radial artery. After that, I gave the patient 2 mg of verapamil IA. Selective right and left coronary angiogram performed using JR4 and JL3.5 catheters. Left heart catheterization was performed using the JR4 catheter which flipped into the LV then I did pullback across aortic valve. After that, I did an IFR of the left circumflex and PCI of the left circumflex. Please see a separate paragraph for that. SELECTIVE CORONARY ANGIOGRAM: 1. The right coronary artery is a large caliber vessel and it is a dominant vessel. The RCA is stented in the midportion and the stent is patent. The distal RCA has intermediate to severe lesion, appeared to be in the range of 50% to 60%.. Distally bifurcates into PDA and PLV branches, both appear to have mild diffuse disease. 2. The left main is angiographically normal, it bifurcates into the circumflex and left anterior descending artery. 3. The left circumflex is a large caliber vessel. It is a nondominant vessel. The proximal circumflex appeared to be angiographically normal. The mid circumflex has eccentric lesion appeared to be in the range of 60% to 70%. We did perform an IFR on it and that came in to be ischemic at 0.87. The left circumflex distally appeared to be angiographically normal. 4. The LAD, the LAD is calcified. The proximal LAD appeared to have mild disease only. The mid LAD appeared to have a lesion in the range of 50%-60% as well. This is by the bifurcation of the first diagonal branch which is a medium to large caliber vessel, seems to be angiographically normal. The LAD in the mid to distal and distal portion appeared to be angiographically normal. HEMODYNAMICS: The left ventricular end-diastolic pressure was 8 mmHg without significant gradient across the aortic valve. IFR OF THE LEFT CIRCUMFLEX AND PCI OF THE LEFT CIRCUMFLEX: After zeroing the Doppler wire and equalizing between the Doppler wire and the guiding catheter which was JL3.5 guiding catheter, we did an IFR and that came into be at 0.87 which is below which is above the ischemic threshold. I did angioplasty of the left circumflex using 2.5 x 12 mm balloon before I deployed 3.0 x 15 mm Xience SAMUEL where the stent was positioned under fluoroscopy guidance and deployed under its nominal pressure. The following angiogram showed good angiographic results and the procedure was completed without any complication. CONCLUSION: 1. Patent stent in the mid RCA. The RCA distal to the stent has intermediate to severe lesion, appeared to be in the range of 50% to 60%. 2. Intermediate to severe disease involving the mid left circumflex. An IFR was applied and came in to be ischemic. I did perform successful stenting of the mid left circumflex. 3. Intermediate to severe disease involving the mid LAD. POSTPROCEDURE MANAGEMENT: 1. Maximize medical treatment. 2. Risk factors modifications. 3. Follow up with the patient. MMODL / IJN: [id number] /
[2018-08-10 20:41] LABS: Glucose,Whole Blood 94 mg/dL (75-99)
[2018-08-10] MEDS: ATORVASTATIN 80 MG TAB PO SCH (22:05)
[2018-08-10] MEDS: FLUoxetine HCL 20 MG CAP PO SCH (22:05)
[2018-08-11 06:34] LABS: Glucose,Whole Blood 92 mg/dL (75-99)
[2018-08-11 07:28] VITALS: TEMP 97.7
[2018-08-11] MEDS: THYROID, PORK 30 MG TAB PO SCH (08:16)
[2018-08-11] MEDS: ASPIRIN 325 MG TAB PO SCH (08:16)
[2018-08-11] MEDS: CLOPIDOGREL 75 MG TAB PO SCH (08:17)
[2018-08-11] MEDS: METOPROLOL TARTRATE 25 MG TAB PO SCH (08:18)
[2018-08-11 11:41] VITALS: BP 122/66; PULSE 56
--- NOTE | 2018-08-11 14:42 | P.DS ---
Providers Date of admission: 08/09/18 20:29 Expected date of discharge: 08/11/18 Attending physician: Bryon Martinez Consults: 08/09/18 20:28 Consult Physician Urgent Consulting Provider: Tyrese Warren Consult Reason/Comments: chest pain, recent stent Do you want consulting provider notified?: Yes 08/10/18 13:20 Consult Physician Routine Consulting Provider: [facility] Consult Reason/Comments: Post Interventional patient Do you want consulting provider notified?: Already Contacted Primary care physician: [facility] Course: Final Diagnoses: -Chest pain, possible unstable angina. Status post left heart catheterization with successful stenting of the mid left circumflex. -Recent non-STEMI with stent placement of the mid RCA, 60-70% mid circumflex lesion and 50% mid LAD lesion -Hypertension -Morbid obesity, BMI 37.3 -Hyperlipidemia -Anxiety Hospital course:This is a 52-year-old gentleman presented to the ER with chest pain unrelieved by 2 nitro sublinguals with a recent non-STEMI with stent placement of the mid RCA, also with mid circumflex(60-70%) and mid LAD( 50%) lesions ,Tourette's syndrome and multiple other medical issues. Reports over the last 2 weeks he experienced fluctuating pressure sensations in the left lower chest area. he was sitting in shinto, developed mid substernal crushing discomfort accompanied by palpitations, diaphoresis with no radiation, no nausea, no vomiting, no diarrhea. Denies lightheadedness dizziness or focal deficits. EKG reported normal sinus rhythm ,T-wave inversions and ST depression in lateral leads, incomplete right bundle branch block, T-wave inversions and ST depression in the precordial leads. VSS. Troponins negative 3. Chest x-ray reporting non acute.magnesium 1.9, potassium 4.1, creatinine 1.18, hemoglobin 15.7, platelets 237.Rcent echocardiogram reports mildly impaired LV systolic function with ejection fraction 45-50% with mild pulmonary hypertension. Currently, symptoms have subsided. Evaluated by cardiology , underwent cardiac catheterization with successful stenting of the mid left circumflex. Tolerated procedure well. Patient has been cleared by cardiology for discharge. Patient is being discharged home in a stable condition with guarded prognosis. EXAM: GENERAL: Alert and oriented 3, no acute distress CARDIOVASCULAR: S1, S2 regular, No murmur, rubs or gallops. RESPIRATION: Breath sounds diminished in the bases. No rhonchi or crackles. ABDOMEN: Soft, nondistended, nontender .No guarding. no masses palpable. Bowel sounds heard. NERVOUS SYSTEM:No focal deficits. The impression and plan of care has been dictated as directed. : I performed a history and examination of this patient, discussed the same with the dictator. I agree with the dictator's note ,documented as a scribe. Any additional findings or plans will be noted. Time taken: 35 minutes Patient Condition at Discharge: Stable Plan - Discharge Summary Discharge Rx Participant: Yes New Discharge Prescriptions: New ALPRAZolam [Xanax] 0.25 mg PO Q8H PRN #9 tab PRN Reason: Anxiety Continue Thyroid,Pork [[place] Thyroid] 60 mg PO DAILY Aspirin EC [Ecotrin Low Dose] 81 mg PO DAILY #30 tablet. Pantoprazole Sodium [Protonix] 40 mg PO DAILY #30 tablet. Atorvastatin [Lipitor] 80 mg PO HS #30 tab Metoprolol Tartrate [Lopressor] 25 mg PO BID #60 tab Clopidogrel [Plavix] 75 mg PO DAILY #30 tab FLUoxetine HCL [PROzac] 20 mg PO HS FLUoxetine HCL [PROzac] Nitroglycerin Sl Tabs [Nitrostat] 0.4 mg SUBLINGUAL Q5M PRN #100 tab PRN Reason: Chest Pain Lisinopril [Zestril] 2.5 mg PO DAILY #30 tab Discharge Medication List Thyroid,Pork [[place] Thyroid] 60 mg PO DAILY 07/23/18 [History] Aspirin EC [Ecotrin Low Dose] 81 mg PO DAILY #30 tablet. 07/27/18 [Rx] Atorvastatin [Lipitor] 80 mg PO HS #30 tab 07/27/18 [Rx] Clopidogrel [Plavix] 75 mg PO DAILY #30 tab 07/27/18 [Rx] Metoprolol Tartrate [Lopressor] 25 mg PO BID #60 tab 07/27/18 [Rx] Pantoprazole Sodium [Protonix] 40 mg PO DAILY #30 tablet. 07/27/18 [Rx] FLUoxetine HCL [PROzac] 08/09/18 [History] FLUoxetine HCL [PROzac] 20 mg PO HS 08/09/18 [History] ALPRAZolam [Xanax] 0.25 mg PO Q8H PRN #9 tab 08/11/18 [Rx] Lisinopril [Zestril] 2.5 mg PO DAILY #30 tab 08/11/18 [Rx] Nitroglycerin Sl Tabs [Nitrostat] 0.4 mg SUBLINGUAL Q5M PRN #100 tab 08/11/18 [Rx] Follow up Appointment(s)/Referral(s): Tyrese Warren MD [STAFF PHYSICIAN] - 08/18/18 1:00 pm Bryon Martinez MD [Primary Care Provider] - 08/19/18 9:00 am Ambulatory/Diagnostic Orders: Complete Blood Count w/diff [LAB.AMB] Time Frame: 3 Days, Location: None Selected Patient Instructions/Handouts: Heart Healthy Diet (DC), Coronary Intravascular Stent Placement (DC)
--- NOTE | 2018-08-11 15:12 | P.PN ---
Subjective Progress Note Date: 08/11/18 This is a pleasant 52-year-old male past medical history significant for coronary artery disease status post recent stent placement, dyslipidemia, hypertension, Tourette syndrome and hypothyroidism. He follows in the office with Dr. Warren. We have been asked to see him in consultation secondary to chest discomfort. He underwent successful stent placement to the mid RCA July 23 in the setting of a non-ST elevated myocardial infarction. At that time he also had evidence of a lesion in the mid circumflex 60-70% and a lesion in the mid LAD in the range of 50%. He is currently maintained on dual antiplatelet therapy. He states for the previous couple of weeks he has felt intermittent episodes of heavy tight sensation in the left precordial region. The symptoms have been intermittent no specific aggravating factors. He states he has used nitroglycerin about 4 or 5 times since his stent placement. Specifically yesterday while he was in [employer] he started feeling extremely excruciating pain in the left precordial region that radiated mildly across to the right side and a little bit into the left shoulder. This was associated with acute diaphoresis. He denies associated shortness of breath, dizziness, nausea, vomiting or diaphoresis. He states his heart started racing at this time. Patient was taken to the cardiac catheterization lab by Dr. Warren yesterday afternoon and underwent angioplasty and stenting of the circumflex artery. He was seen and examined this morning, appeared extremely anxious, states that he had some poking stabbing chest pains earlier. His EKG from this morning shows normal sinus rhythm with no acute changes from post-PCI. Hemodynamically he is stable. Objective - Vital Signs Vital signs: Vital Signs Temp 97.7 F 08/11/18 07:26 Pulse 56 L 08/11/18 11:40 Resp 16 08/11/18 11:40 BP 122/66 08/11/18 11:40 Pulse Ox 96 08/11/18 11:40 Intake & Output 08/10/18 08/11/18 08/11/18 18:59 06:59 18:59 Intake Total 239 645 600 Balance 239 645 600 Weight 110.5 kg Intake: IV 239 525 Sodium Chloride 0.9% 1, 525 000 ml @ 75 mls/hr IV . [id number] CHAYITO Rx#:[id number] Oral 120 600 Other: Voiding Method Toilet Toilet # Voids 1 1 1 # Bowel Movements 1 - Exam GENERAL: This is a 52-year-old male in no apparent distress at the time of my examination. HEENT: Head is atraumatic, normocephalic. Pupils are equal, round. Sclerae anicteric. Conjunctivae are clear. Mucous membranes of the mouth are moist. Neck is supple. There is no jugular venous distention. No carotid bruit is heard. LUNGS: Clear to auscultation no wheezes, rales or rhonchi. No chest wall tenderness is noted on palpation or with deep breathing. HEART: Regular rate and rhythm without murmurs, rubs or gallops. S1 and S2 heard. ABDOMEN: Soft, nontender. Bowel sounds are heard. No organomegaly noted. EXTREMITIES: No evidence of peripheral edema and no calf tenderness noted. Right radial site clean and dry, good distal pulse. VASCULAR: Radial and dorsalis pedis pulses palpated, no evidence of clubbing. NEUROLOGIC: Patient is awake, alert and oriented x3. - Labs CBC & Chem 7: 08/09/18 18:50 08/11/18 06:08 Assessment and Plan Plan: Assessment and plan #1 coronary syndrome, status post angioplasty and stenting of the circumflex artery #2 Coronary artery disease status post recent stent placement to the mid RCA, 60-70% lesion in the mid circumflex and 50% lesion in the mid LAD #3 Hypertension #4 Dyslipidemia #5 Obesity, BMI 37 Plan Cardiology's perspective, patient may be able to be discharged home today. We'll make him a follow-up appointment in the office with Dr. Leo post discharge. His charge medications include aspirin 81 mg daily, Lipitor 80 mg daily, Plavix 75 mg daily, metoprolol 25 mg one tablet by mouth twice a day, sublingual nitroglycerin as needed for chest pain. DNP note has been reviewed, I agree with a documented findings and plan of care. Patient was seen and examined.
== END 2018-08-11 15:00 | disposition home or self-care (01) ==
LOC: EC 18:19 → 1SOBS 20:29 → 3SCARD 08-10 13:30
PROVIDERS: ADMIT Family Medicine; ATTEND Family Medicine
DX: I25.10 Atherosclerotic heart disease of native coronary artery without angina pectoris (principal); E03.9 Hypothyroidism, unspecified; I21.4 Non-ST elevation (NSTEMI) myocardial infarction; E66.01 Morbid (severe) obesity due to excess calories; Z68.37 Body mass index [BMI] 37.0-37.9, adult; E78.5 Hyperlipidemia, unspecified; I27.20 Pulmonary hypertension, unspecified; F32.9 Major depressive disorder, single episode, unspecified; F41.9 Anxiety disorder, unspecified; F95.2 Tourette's disorder; I10 Essential (primary) hypertension; I45.10 Unspecified right bundle-branch block; Z79.02 Long term (current) use of antithrombotics/antiplatelets; Z79.82 Long term (current) use of aspirin; Z79.899 Other long term (current) drug therapy; Z95.5 Presence of coronary angioplasty implant and graft; Z82.49 Family history of ischemic heart disease and other diseases of the circulatory system
CPT/HCPCS: 99285; 36415; 93005; 93571; 93458; 83880; 80061; 80053; 82565; 82553; 83735; 84484 ×2; 85025; 85610; 85730; 71046; G0378 ×4; C9600; C1887; C1725; C1874; C1769; C1894; J2001; J3010; J0583; J0153; Q9967; J2250